=== PATIENT | male | born 1955 | race Two or more races ===

== ENCOUNTER 2019-04-07 12:55 | Inpatient (IN) | payer MEDICAID ==
[~2019-04-07] VITALS: Ht 167.6 cm; Wt 80.3 kg
[2019-04-07] MEDS ORDERED: IV NS 0.9% 1,000 ML BAG IV ONE (13:00)
--- NOTE | 2019-04-07 13:10 | NUR ---
PT BLOOD DRAWNED AND SENT TO LAB.
[2019-04-07] MEDS ORDERED: ATOR10TA GT (13:11)
[2019-04-07] MEDS ORDERED: DOCU50LI GT (13:11)
[2019-04-07] MEDS ORDERED: NA P133E RC (13:11)
[2019-04-07] MEDS ORDERED: HYDR-4384 GT (13:11)
[2019-04-07] MEDS ORDERED: ZOLP5TAB2 GT (13:11)
[2019-04-07] MEDS ORDERED: FAMO20TA80 GT (13:11)
[2019-04-07] MEDS ORDERED: LEVE100S GT (13:11)
[2019-04-07] MEDS ORDERED: MAGN400O6 GT (13:11)
[2019-04-07] MEDS ORDERED: NUTR250L50 GT (13:11)
[2019-04-07] MEDS ORDERED: BISA10SU11 RC (13:11)
[2019-04-07] MEDS ORDERED: MULT-24 GT (13:11)
[2019-04-07] MEDS ORDERED: CLON1TAB GT (13:11)
[2019-04-07] MEDS ORDERED: LACT10SO GT (13:11)
[2019-04-07] MEDS ORDERED: GABA-532 GT (13:11)
[2019-04-07] MEDS ORDERED: ACET-868 GT (13:11)
[2019-04-07] MEDS ORDERED: CHOL100044 GT (13:11)
[2019-04-07 13:13] LABS: BASOPHILS # (AUTO) 0.1 /CMM (0.0-0.2); BASOPHILS % (AUTO) 0.7 % (0.0-2.0); EOSINOPHILS % (AUTO) 3.5 % (0.0-6.0); HEMATOCRIT 45 % (39-51); HEMOGLOBIN 15.5 g/dL (13.5-17.5); LYMPHOCYTES # (AUTO) 1.9 /CMM (0.8-4.8); LYMPHOCYTES % (AUTO) 19.4 % (20.0-44.0); MEAN CORPUSCULAR HGB CONC 35 g/dl (31.0-36.0); MEAN CORPUSCULAR VOLUME 95 fL (80-96); MONOCYTES # (AUTO) 0.6 /CMM (0.1-1.30); NEUTROPHILS # (AUTO) 6.9 /CMM (1.8-8.9); NEUTROPHILS % (AUTO) 70.4 % (43.0-81.0); PLATELET COUNT (AUTO) 259 /CMM (150-450); RED BLOOD CELL COUNT(AUTO) 4.71 MIL/uL (4.5-6.0); WHITE BLOOD COUNT (AUTO) 9.7 K/uL (4.3-11.0)
--- NOTE | 2019-04-07 13:20 | NUR ---
pt rec'd to er via ems from [facility] pt witness seizure iv rt wrist 20g labs drawns sent to labAWAITING EVALUATION BY ER PROVIDER.
[2019-04-07 13:21] LABS: CALCIUM, SERUM 9.4 mg/dL (8.5-10.1); CREATININE 0.8 mg/dL (0.6-1.3)
[2019-04-07 13:27] LABS: BILIRUBIN,DIRECT 0.2 mg/dL (0.0-0.2); BILIRUBIN,TOTAL 0.3 mg/dL (0.2-1.0); TOTAL PROTEIN, SERUM 8.4 g/dL (6.4-8.2)
--- NOTE | 2019-04-07 15:07 | NUR ---
[facility] TRIP #[id number] ETA [id number]
--- NOTE | 2019-04-07 15:16 | NUR ---
[facility] CANCELLED DUE TO PT ADMISSION
[2019-04-07] MEDS: LEVETIRACETAM (500MG) 1,000 MG in IV NS 0.9% 100 ML IV SCH (15:18)
--- NOTE | 2019-04-07 15:19 | NUR ---
CALLED [facility], GABBY FULLER
--- NOTE | 2019-04-07 15:19 | NUR ---
keppra given per md order vss
--- NOTE | 2019-04-07 15:20 | NUR ---
CALLED NURSING SUP FOR BED
--- NOTE | 2019-04-07 15:34 | NUR ---
119-1 TELE GUILHERME HANCOCK, DX SEIZURE, JONNY
--- NOTE | 2019-04-07 15:50 | NUR ---
JONNY PAGED FOR ADMISSION
[2019-04-07] MEDS ORDERED: MAGNESIUM HYDROXIDE 30 ML UDC PO PRN (16:30)
[2019-04-07] MEDS ORDERED: Z GUARD REMEDY 2 OZ OINT TP PRN (16:30)
[2019-04-07] MEDS ORDERED: ONDANSETRON HCL/PF 4 MG/2 ML VIAL IVP PRN (16:30)
[2019-04-07] MEDS ORDERED: MAG HYDROX/AL HYDROX/SIMETH 30 ML UDC PO PRN (16:30)
[2019-04-07] MEDS ORDERED: ACETAMINOPHEN 325 MG TABLET PO PRN (16:30)
[2019-04-07] MEDS ORDERED: HYDROCODONE/APAP 5/325MG 1 EACH TABLET PO PRN (16:30)
[2019-04-07] MEDS ORDERED: ZOLPIDEM TARTRATE 5 MG TABLET PO PRN (16:30)
--- NOTE | 2019-04-07 16:47 | NUR ---
REPORT CALLED TO THE FLOOR GUILHERME HANCOCK PT STABLE FOR TRANSFER
[2019-04-07] MEDS: IV NS 0.9% 1,000 ML IV PRN (17:30)
[2019-04-07 18:15] VITALS: BP 142/78
--- NOTE | 2019-04-07 18:17 | NUR ---
TRANSFER RECIEVED REPORT FROM [facility] RN. PT TRANSFERRED FROM EMERGENCY ROOM UNDER DERDERIAN FOR SZ PT WAS TO BE DISCHARGED BUT NUEROLOGIST IN ED RECOMMEDED PT BE ADMITTED FOR TITRATION OF MEDICATIONS. PT DYSPHAGIC WITH G-TUBE AND PIV IN RIGHT WRIST 20 G PLACED BY PARAMEDICS. PT SKIN WNL EXCEPT LEFT ARM PICTURERS TAKEN PT STARTED ON FLUIDS NS AT 70 ML/HR. PLACED ON MONITOR ST AT 105 BED I LOW POSITION ALRMS ON AND CALL BEL NEXT TO PT WILL CONTINUE TO MONITOR
--- NOTE | 2019-04-07 19:40 | NUR ---
PARA OPERATOR OPENING NOTE, RECEIVED PATIENT ON BED, AWAKE/ALERT x1. PATIENT TRANSFERRED FROM EMERGENCY ROOM UNDER DERDERIAN FOR SZ AT 1700. PATENT HAS G-TUBE, IV IN RIGHT WRIST 20 G, NS @75 RUNNING. PATIENT ON MONITOR. BED IN LOW POSITION BED ALARM ON AND CALL BEL NEXT TO PATIENT WILL CONTINUE TO MONITOR
[2019-04-07 20:00] VITALS: BP 126/75
[2019-04-07] MEDS ORDERED: JEVITY 1.2 CAL 1,000 ML BOTTLE GT PRN (22:30)
[2019-04-08] VITALS (7 sets, daily range): BP systolic 109–141; BP diastolic 69–81
[2019-04-08] MEDS: LEVETIRACETAM (500MG) 1,000 MG in IV NS 0.9% 100 ML IV SCH (03:02)
[2019-04-08] MEDS ORDERED: LEVETIRACETAM (500MG) 500 MG/5 ML VIAL IV ONE (03:10)
[2019-04-08] MEDS: IV NS 0.9% 1,000 ML IV PRN ×2 (06:28→20:54)
--- NOTE | 2019-04-08 07:12 | NUR ---
MOLD INSERT CHANGER CLOSING NOTE, PATIENT ON BED, SLEEPING, A/O x1. PATIENT TRANSFERRED FROM EMERGENCY ROOM FOR SZ AT 1700. PATENT HAS G-TUBE JEVITY RUNNING AT 40ML/HR, IV IN RIGHT WRIST 20 G, NS @75 RUNNING. PATIENT ON MONITOR.NO SOB OR ACUTE DISTRESS NOTED AT CLEARING DISTRIBUTION CLERK. BED IN LOW POSITION BED ALARM ON AND CALL BEL NEXT TO PATIENT WILL ENDORSE TO AM SHIFT FOR ETHEL.
--- NOTE | 2019-04-08 07:30 | NUR ---
RN OPENING NOTES PATIENT IS AWAKE AND RESTING IN BED. HE IS AOX1, NONVERBAL, FALL RISK. P[ATIENT IS ON RA, TOLERATING WELL, NO S/SX OF RESP DISTRESS OR SOB. JEVITY IS RUNNING AT 40 ML/HR, NO RESIDUAL AT THIS TIME. HE HAS A 20 G ON RIGHT WRIST RUNNING NS AT 75 ML/HR. FULL CODE. NKA. SAFETY MEASURES HAVE BEEN IMPLEMENTED, CALL LIGHT IS WITHIN REACH, BED IN LOWEST AND LOCKED POSITION, SIDE RAILS UP X2, WILL MONITOR FOR ANY CHANGES.
[2019-04-08 07:42] LABS: ALBUMIN 2.5 g/dL (3.4-5.0); BILIRUBIN,TOTAL 0.5 mg/dL (0.2-1.0); CALCIUM, SERUM 8.4 mg/dL (8.5-10.1); CREATININE 0.7 mg/dL (0.6-1.3); MAGNESIUM 2.1 mg/dL (1.8-2.4); PHOSPHORUS 3.5 mg/dL (2.5-4.9); POTASSIUM 4.8 mmol/L (3.5-5.1); TOTAL PROTEIN, SERUM 7.8 g/dL (6.4-8.2)
[2019-04-08 07:55] LABS: BASOPHILS # (AUTO) 0.1 /CMM (0.0-0.2); BASOPHILS % (AUTO) 0.8 % (0.0-2.0); EOSINOPHILS % (AUTO) 4.4 % (0.0-6.0); HEMATOCRIT 45 % (39-51); HEMOGLOBIN 15.4 g/dL (13.5-17.5); LYMPHOCYTES # (AUTO) 2.4 /CMM (0.8-4.8); LYMPHOCYTES % (AUTO) 22.3 % (20.0-44.0); MEAN CORPUSCULAR HGB CONC 35 g/dl (31.0-36.0); MEAN CORPUSCULAR VOLUME 96 fL (80-96); MONOCYTES # (AUTO) 0.6 /CMM (0.1-1.30); MONOCYTES % (AUTO) 5.4 % (2.0-12.0); NEUTROPHILS # (AUTO) 7.2 /CMM (1.8-8.9); NEUTROPHILS % (AUTO) 67.1 % (43.0-81.0); RED BLOOD CELL COUNT(AUTO) 4.67 MIL/uL (4.5-6.0); WHITE BLOOD COUNT (AUTO) 10.7 K/uL (4.3-11.0)
[2019-04-08 08:43] LABS: PLATELET COUNT (AUTO) 202 /CMM (150-450)
--- NOTE | 2019-04-08 14:18 | NUR ---
DR. ABRAHAM NOTIFIED PATIENT HAD SEIZURE EPISODE FOR 10 SECONDS,BECOME TACHY,OBTAINED ORDERS FOR PRN ATIVAN AND REQUESTED NEURO CONSULT WITH [facility].
--- NOTE | 2019-04-08 14:29 | NUR ---
MESSAGE LEFT TO DR. STOREY FOR CONSULT.
[2019-04-08] MEDS ORDERED: LORAZEPAM INJ 2 MG/ML VIAL IV PRN (14:30)
[2019-04-08] MEDS ORDERED: LACOSAMIDE 50 MG TABLET PO SCH (15:00)
[2019-04-08] MEDS ORDERED: LEVETIRACETAM (500MG) 1,500 MG in IV NS 0.9% 100 ML IV SCH (15:00)
[2019-04-08] MEDS: LACOSAMIDE 50 MG TABLET PO SCH ×2 (15:09→22:08)
[2019-04-08] MEDS ORDERED: NS 0.9% IV SCH (16:00)
[2019-04-08] MEDS ORDERED: D5W IV ONE (16:00)
[2019-04-08] MEDS ORDERED: LEVETIRACETAM IV SCH (16:00)
[2019-04-08] MEDS ORDERED: LEVETIRACETAM IV ONE (16:00)
--- NOTE | 2019-04-08 19:21 | NUR ---
RN CLOSING NOTES PATIENT IS RESTING IN BED COMFORTABLY. HE HAD ONE SEIZURE AT 1400 DURING MY SHIFT. HE IS STABLE NOW, NEEDS HAVE BEEN MET. HE IS ON RA, TOLERATING WELL. JEVITY RUNNING AT 40 ML/HR. SAFETY MEASURES HAVE BEEN IMPLEMENTED, CALL LIGHT IS WITHIN REACH, BED IN LOWEST AND LOCKED POSITION, SIDE RAILS UP X2. PATIENT HAS BEEN ENDORSED TO NIGHTSHIFT RN.
--- NOTE | 2019-04-08 19:30 | NUR ---
CORRECTIONS SERGEANT OPENING NOTE, RECEIVED PATIENT ON BED, AWAKE/ALERT x1. ON ROOM AIR TOLERATING WELL. PATENT HAS G-TUBE JEVITY RUNNING AT 40ML/HR, IV IN RIGHT WRIST 20 G, NS @75 RUNNING. PATIENT ON MONITOR. SAFETY MEASURES HAS BEEN IMPLEMENTED, BED IS LOW/LOCKED, BED ALARM ON AND CALL LIGHT WITHIN REACH. WILL CONTINUE TO MONITOR
[2019-04-09] VITALS: BP 126/74
[2019-04-09] MEDS: JEVITY 1.2 CAL 1,000 ML BOTTLE GT PRN (02:12)
[2019-04-09 04:00] VITALS: BP 102/57
[2019-04-09] MEDS ORDERED: LEVETIRACETAM (500MG) 500 MG/5 ML VIAL IV ONE ×2 (04:11→04:25)
[2019-04-09] MEDS: NS 0.9% IV SCH ×2 (04:29→16:05)
[2019-04-09] MEDS: LEVETIRACETAM IV SCH ×2 (04:29→16:05)
--- NOTE | 2019-04-09 07:10 | NUR ---
MACHINE WORKER CLOSING NOTE, PATIENT IN BED, AWAKE/ALERT x1. ON ROOM AIR TOLERATING WELL. PATENT HAS G-TUBE JEVITY RUNNING AT 40ML/HR, IV IN RIGHT WRIST 20 G, NS @75 RUNNING. PATIENT ON MONITOR. SAFETY MEASURES HAS BEEN IMPLEMENTED, BED IS LOW/LOCKED, BED ALARM ON AND CALL LIGHT WITHIN REACH. WILL ENDORSE TO AM RN FOR ETHEL.
--- NOTE | 2019-04-09 07:10 | NUR ---
INFUSION THERAPY NURSE OPENING NOTE RECEIVED PATIENT ON BED, AWAKE/ALERT x1. ON ROOM AIR TOLERATING WELL. PATENT HAS G-TUBE JEVITY RUNNING AT 40ML/HR, IV IN RIGHT WRIST 20 G, NS @75 RUNNING. PATIENT ON MONITOR SR HR 71. SAFETY MEASURES HAS BEEN IMPLEMENTED, BED IS LOW/LOCKED, BED ALARM ON AND CALL LIGHT WITHIN REACH. WILL CONTINUE TO MONITOR
[2019-04-09 08:00] VITALS: BP 107/68
[2019-04-09] MEDS: LACOSAMIDE 50 MG TABLET PO SCH ×2 (09:51→20:51)
[2019-04-09 12:00] VITALS: BP 125/61
[2019-04-09 16:00] VITALS: BP_SYST 112; BP_DIAS 53; BP_DIAS 63
[2019-04-09] MEDS: IV NS 0.9% 1,000 ML IV PRN (16:06)
--- NOTE | 2019-04-09 18:50 | NUR ---
SLATER APPRENTICE MS PT VOMITED A VERY SMALL AMOUNT AFTER HAVING SOUP DINNER. ASPIRATION PRECAUTION IN PLACE. HOB ELEVATED. WALL SUCTION SET UP. PAGED DR. FULLER AND WAITING FOR HIS CALL. CHARGE NURSE MADE AWARE. PT FAMILY REFUSED TO GIVE HER ZOFRAN.
--- NOTE | 2019-04-09 19:04 | NUR ---
DIRECTOR FINANCIAL SYSTEMS CLOSING NOTES PATIENT IS RESTING IN BED COMFORTABLY. SINUS RHYTHM HR 82. NO RESPIRATORY/CARDIAC DISTRESS OR SOB AT THIS TIME. ON RA, TOLERATING WELL. JEVITY RUNNING AT 40 ML/HR. SAFETY MEASURES HAVE BEEN IMPLEMENTED, CALL LIGHT IS WITHIN REACH, BED IN LOWEST AND LOCKED POSITION, SIDE RAILS UP X2. WILL ENDORSE TO THE COOLING TOWER TECHNICIAN NURSE FOR ETHEL.
--- NOTE | 2019-04-09 19:30 | NUR ---
BIOMETRICS ANALYST OPENING NOTE, RECEIVED PATIENT ON BED, AWAKE/ALERT x1. ON ROOM AIR TOLERATING WELL. PATENT HAS G-TUBE JEVITY RUNNING AT 40ML/HR, IV IN RIGHT WRIST 20 G, NS @75 RUNNING. PATIENT ON MONITOR. SAFETY MEASURES HAS BEEN IMPLEMENTED, BED IS LOW/LOCKED, BED ALARM ON AND CALL LIGHT WITHIN REACH. WILL CONTINUE TO MONITOR
[2019-04-09 20:00] VITALS: BP 132/70
[2019-04-10] VITALS (8 sets, daily range): BP systolic 113–139; BP diastolic 73–97
[2019-04-10] MEDS ORDERED: LEVETIRACETAM (500MG) 500 MG/5 ML VIAL IV ONE ×2 (03:54→04:39)
[2019-04-10] MEDS: LEVETIRACETAM IV SCH ×2 (04:08→15:30)
[2019-04-10] MEDS: NS 0.9% IV SCH ×2 (04:08→15:30)
--- NOTE | 2019-04-10 07:20 | NUR ---
RUBBER BOOTS AND SHOES REPAIRER CLOSING NOTES PATIENT IS RESTING IN BED COMFORTABLY. SINUS RHYTHM HR IN 80s. NO RESPIRATORY/CARDIAC DISTRESS OR SOB AT THIS TIME. ON RA, TOLERATING WELL. JEVITY RUNNING AT 40 ML/HR. SAFETY MEASURES HAVE BEEN IMPLEMENTED, CALL LIGHT IS WITHIN REACH, BED IN LOWEST AND LOCKED POSITION, SIDE RAILS UP X2. WILL ENDORSE TO THE ASSISTANT ATTORNEY GENERAL NURSE FOR ETHEL.
--- NOTE | 2019-04-10 07:25 | NUR ---
TELE/RN OPENING NOTES RECEIVED PATIENT ON BED AWAKE, ALERT AND ORIENTED x1. NO PAIN OR ACUTE DISTRESS AT THIS TIME. RESPIRATION EVEN AND UNLABORED. SKIN IS DRY WARM TO TOUCH. PATIENT ON ROOM AIR TOLERATING WELL. CONBTINUES ON TELE MONITORING WITH HR AROUND 80'S. NOTED WITH GTF OF JEVITY RUNNING AT 40ML/HR. TOLERATING WELL. NO RESIDUALS NOTED. HOB ELEVATED AT ALL TIMES. NOTED WITH IV ACCESS ON RIGHT WRIST #20G WITH NS @75 RUNNING. INTACT AND PATENT. FLUSHING WELL. ALL NEEDS ANTICIPATED. KEPT CLEAN AND DRY. CALL LIGHT WITHIN REACHED. SAFETY MAINTAINED. BED LOCKED AND IN LOWEST POSITION. WILL CONTINUE TO MONITOR CLOSELY.
[2019-04-10] MEDS: IV NS 0.9% 1,000 ML IV PRN (07:47)
[2019-04-10] MEDS: JEVITY 1.2 CAL 1,000 ML BOTTLE GT PRN (07:47)
[2019-04-10] MEDS: LACOSAMIDE 50 MG TABLET PO SCH ×2 (08:20→20:17)
--- NOTE | 2019-04-10 18:39 | NUR ---
TELE/RN CLOSING NOTES PATIENT CONTINUES TO REMAIN IN STABLE CONDITION THROUGHOUT THE SHIFT. PROVIDED SAFETY AND COMFORT. TELE MONITORING WITH HR AROUND 75'S. CONTINUES WITH GTF OF JEVITY RUNNING AT 40ML/HR. TOLERATING WELL. NO RESIDUALS NOTED. HOB ELEVATED AT ALL TIMES. NOTED WITH IV ACCESS ON RIGHT WRIST #20G WITH NS @75 RUNNING. INTACT AND PATENT. FLUSHING WELL. ALL NEEDS ANTICIPATED. KEPT CLEAN AND DRY. CALL LIGHT WITHIN REACHED. SAFETY MAINTAINED. BED LOCKED AND IN LOWEST POSITION. WILL CONTINUE TO MONITOR CLOSELY. ENDORSED TO PM NURSE FOR ETHEL.
[2019-04-11] VITALS: BP 113/80
[2019-04-11] MEDS: IV NS 0.9% 1,000 ML IV PRN (01:19)
[2019-04-11 04:00] VITALS: BP 130/77
[2019-04-11] MEDS: NS 0.9% IV SCH (05:02)
[2019-04-11] MEDS: LEVETIRACETAM IV SCH (05:02)
--- NOTE | 2019-04-11 07:23 | NUR ---
RN NOTE PATIENT RESTED WELL AT NIGHT, SEIZURE PRECAUTIONS TAKEN, NO SEIZURE ACTIVITY NOTED, NO RESPIRATORY DISTRESS NOTED, ONGOING TUBE FEEDING TOLERATES WELL, ONGOING IV FLUIDS, TOLERATES WELL, WILL ENDORSE TO AM SHIFT TO CONTINUE CARE
--- NOTE | 2019-04-11 07:30 | NUR ---
RN OTES RECEIVED PATIENT IN BED, A/A/0X1,NON VERBAL. NOT ON ANY FORM OF DISTRESS. ON ROOM AIR, BREATHING UNLABORED, NO INDICATION OF PAIN NOTED AT THIS TIME. SINUS RHYTHM ON THE MONITOR WITH HR ON 70'S. WITH GTF OF JEVITY INFUSING AT 40CC/HR, GT PLACEMENT VERIFIED BY AUSCULTATING AND ASPIRATING GASTRIC RESIDUAL, NO RESIDUAL NOTED AT THIS TIME. HOB KEPT ELEVATED. SAFETY MEASURES OBSERVED AND MAINTAINED. CALL LIGHT PLACED WITHIN REACH. WILL CONTINUE TO MONITOR PATIENT AND ANTICIPATE NEEDS
[2019-04-11 08:00] VITALS: BP 128/68
[2019-04-11] MEDS: LACOSAMIDE 50 MG TABLET PO SCH (09:28)
--- NOTE | 2019-04-11 14:10 | NUR ---
RN NOTES PATIENT DISCHARGE. ALL MEDICATION AND DISCHARGE INSTRUCTION GIVEN TO [facility] [place] DURING REPORT. PER THE LATER PATIENT HAS BEEN VACCINATED. NO BELONGINGS WERE RECORDED UPON ADMISSION. SKIN IS NOTED INTACT UPON CHECKING DURING CLEANING. ID BAND AND IV ACCESS SITE REMOVED. PATIENT WHEELED OUT OF THE UNIT ACCOMPANIED BY 2 EMT
== END 2019-04-11 14:10 | DRG 53 ==
LOC: ER 13:01 → TELE1 16:49 → MEDSG1 04-11 08:37
PROVIDERS: ADMIT Internal Medicine; ATTEND Nurse Practitioner Acute Care
DX: G40.909 Epilepsy, unspecified, not intractable, without status epilepticus (principal); G62.9 Polyneuropathy, unspecified; Z93.1 Gastrostomy status; M06.9 Rheumatoid arthritis, unspecified; R13.10 Dysphagia, unspecified; F79 Unspecified intellectual disabilities; E66.9 Obesity, unspecified; Z68.29 Body mass index [BMI] 29.0-29.9, adult
CPT/HCPCS: 36415; 70450-TC; 71045-TC; 80048-TC; 80053-TC; 80061-TC; 80076-TC; 82962-TC; 83735-TC; 84100-TC; 84484-TC; 85025-TC; 85730-TC; 87081-TC; G0378; J1953; J7030; J7050; J7060

== ENCOUNTER 2019-06-03 14:05 | Inpatient (IN) | payer MEDICAID ==
[~2019-06-03] VITALS: Ht 167.6 cm; Wt 76.7 kg
[~2019-06-03 14:05] MED LIST: ACET-868 GT; ATOR10TA PO; BISA10SU11 RC; CHOL100044 PO; CLON1TAB GT; DOCU50LI PO; FAMO20TA80 PO; GABA-532 PO; HYDR-4384 GT; LACT10SO GT; LEVE100S PO; MAGN400O6 GT; MULT-24 PO; NA P133E RC; NUTR250L50 GT; ZOLP5TAB2 GT
--- NOTE | 2019-06-03 14:10 | NUR ---
CHEY FROM [facility], FOUND MORE ALTERED, NON VERBAL 1 HOUR AGO. LAST KNOWN WELL 10 PM LAST NIGHT. BG 143 QUALITY PROCESS ENGINEER. PATIENT NON-VERBAL, OPENS EYES, CHANGED INTO GOWN, ATTACHED TO THE FLAP PRESSER. NO DISTRESS NOTED.
[2019-06-03] MEDS ORDERED: ONDANSETRON HCL/PF 4 MG/2 ML VIAL IVP ONE (14:30)
[2019-06-03] MEDS ORDERED: ONDANSETRON HCL/PF 4 MG/2 ML VIAL ONE (14:34)
[2019-06-03] MEDS ORDERED: LORA2VIA11 IM (14:34)
[2019-06-03] MEDS ORDERED: LACO100T2 PO (14:34)
[2019-06-03 14:37] LABS: BASOPHILS # (AUTO) 0.1 /CMM (0.0-0.2); BASOPHILS % (AUTO) 0.7 % (0.0-2.0); EOSINOPHILS % (AUTO) 3.6 % (0.0-6.0); HEMATOCRIT 45 % (39-51); HEMOGLOBIN 15.2 g/dL (13.5-17.5); LYMPHOCYTES # (AUTO) 2.2 /CMM (0.8-4.8); LYMPHOCYTES % (AUTO) 31.1 % (20.0-44.0); MEAN CORPUSCULAR HGB CONC 34 g/dl (31.0-36.0); MEAN CORPUSCULAR VOLUME 95 fL (80-96); MONOCYTES # (AUTO) 0.7 /CMM (0.1-1.30); MONOCYTES % (AUTO) 9.4 % (2.0-12.0); NEUTROPHILS # (AUTO) 3.9 /CMM (1.8-8.9); NEUTROPHILS % (AUTO) 55.2 % (43.0-81.0); PLATELET COUNT (AUTO) 186 /CMM (150-450); RED BLOOD CELL COUNT(AUTO) 4.69 MIL/uL (4.5-6.0); WHITE BLOOD COUNT (AUTO) 7.1 K/uL (4.3-11.0)
--- NOTE | 2019-06-03 14:56 | NUR ---
PLEASE NOTIFY RUI HANCOCK AT FACILITY, FOR UPDATES
[2019-06-03 15:00] LABS: ALANINE AMINOTRANSFERASE 22 U/L (12-78); ALBUMIN 3.4 g/dL (3.4-5.0); ALKALINE PHOSPHATASE 137 U/L (46-116); ASPARTATE AMINOTRANSFERASE 24 U/L (15-37); BILIRUBIN,DIRECT 0.1 mg/dL (0.0-0.2); BILIRUBIN,TOTAL 0.3 mg/dL (0.2-1.0); CALCIUM, SERUM 9.1 mg/dL (8.5-10.1); CARBON DIOXIDE 27 mmol/L (21-32); CHLORIDE 103 mmol/L (98-107); CREATININE 1.1 mg/dL (0.6-1.3); GLUCOSE 140 mg/dL (74-106); POTASSIUM 3.5 mmol/L (3.5-5.1); SODIUM SERUM 138 mmol/L (136-145); TOTAL PROTEIN, SERUM 8.7 g/dL (6.4-8.2); UREA NITROGEN, BLOOD 12 mg/dL (7-18)
[2019-06-03 15:01] LABS: THYROID STIMULATING HORMONE 1.711 uIU/mL (0.358-3.74)
[2019-06-03 15:13] LABS: BILIRUBIN,URINE SMALL (NEGATIVE); BLOOD, URINE Negative Ery/uL (NEGATIVE); COLOR,URINE Yellow (YELLOW); KETONES,URINE Negative (NEGATIVE); LEUKOCYTE ESTERASE ,URINE Trace (NEGATIVE); NITRITE, URINE Positive (NEGATIVE); PH,URINE 5.5 (5.0-8.0); PROTEIN,URINE Trace mg/dl (NEGATIVE); UGLUCOSE Negative (NEGATIVE); UROBILINOGEN,URINE 0.2 EU/dL (0.2)
[2019-06-03 15:15] LABS: APPEARANCE,URINE SLIGHTLY CLOUDY (CLEAR); RBC,URINE 0-2 /HPF (0-2)
[2019-06-03 15:16] LABS: BACTERIA,URINE Moderate /HPF (None Seen); SQUAMOUS EPITHELIAL CELL,UR Moderate /HPF (None Seen)
[2019-06-03] MEDS ORDERED: CEFTRIAXONE 1GM BAG (ER ONLY) 50 ML IV ONE ×2 (15:30→15:37)
[2019-06-03] MEDS ORDERED: IV NS 0.9% 1,000 ML BAG IV ONE ×2 (15:30→17:30)
--- NOTE | 2019-06-03 16:30 | NUR ---
CALLED [facility], DR GRANDE PAGED
--- NOTE | 2019-06-03 16:41 | NUR ---
CALLED [facility]
--- NOTE | 2019-06-03 17:13 | NUR ---
308-2 [facility]
--- NOTE | 2019-06-03 17:37 | NUR ---
REPORT GIVEN TO XANDER HANCOCK FOR ETHEL.
--- NOTE | 2019-06-03 18:04 | NUR ---
PATIENT TRANSFERRED TO ROOM 308-2. PATIENT IN STABLE CONDITION. NO DISTRESS NOTED.
[2019-06-03 18:30] VITALS: BP 136/81
--- NOTE | 2019-06-03 18:39 | NUR ---
MS RN NOTES RECEIVED PT FROM ER DEPT. PT A/O X1, NON VERBAL, OPENS EYES, STARES AND TRACKS MOVEMENT OF STAFF. VITALS TAKEN; BP 136/81, HR 86, RR19, T 98.8, RA 93%. PT NOT IN ANY RESPIRATORY DISTRESS, PT NOT EXHIBITING PAIN OR DISCOMFORT. PT WEARING SHIRT AND PANTS WITH DIAPER. WHITE WATCH WITH PT'S LABEL AT BEDSIDE. PIV TO LEFT WRIST G18 SL, FLUSHED WITH NS, INTACT AND OPERATIONAL. WILL ENDORSE TO INCOMING NIGHT NURSE FOR ADMISSION PROCESS. PT KEPT COMFORTABLE IN BED. BED IN LOWEST, LOCKED POSITION, WITH SR X3. CALL LIGHT KEPT WITHIN REACH. WILL ENDORSE TO ASPHALT WORKER NURSE FOR ETHEL.
[2019-06-03] MEDS ORDERED: ACETAMINOPHEN 325 MG TABLET PO PRN (19:30)
[2019-06-03] MEDS ORDERED: LORAZEPAM INJ 2 MG/ML VIAL IM PRN (19:30)
[2019-06-03] MEDS ORDERED: Z GUARD REMEDY 2 OZ OINT TP PRN (19:30)
[2019-06-03] MEDS ORDERED: MAG HYDROX/AL HYDROX/SIMETH 30 ML UDC PO PRN (19:30)
[2019-06-03] MEDS ORDERED: ONDANSETRON HCL/PF 4 MG/2 ML VIAL IVP PRN (19:30)
[2019-06-03] MEDS ORDERED: MAGNESIUM HYDROXIDE 30 ML UDC PO PRN (19:30)
[2019-06-03] MEDS ORDERED: HYDROCODONE/APAP 5/325MG 1 EACH TABLET PO PRN (19:30)
--- NOTE | 2019-06-03 19:30 | NUR ---
MS RN OPENING NOTE RECEIVED PATIENT IN BED. A/O X1, NON VERBAL, EYES ARE OPEN, STARES AND TRACKS MOVEMENT OF STAFF. TOLERATING ROOM AIR. RESPIRATIONS ARE EVEN AND UNLABORED. NO S/S SOB NOTED. NO APPARENT DISTRESS AT THIS TIME. PT IS GRUNTING/ COUGHING WITH NO PRODUCTIVE SPUTUM. PT NOT EXHIBITING PAIN OR DISCOMFORT. IV ACCESS IN LEFT WRIST #18 PATENT AND SALINE LOCKED. COMPLETED A COMPLETE INITIAL PHYSICAL ASSESSMENT ON PATIENT, CHANGED ID BAND, CONDUCTED SKIN ASSESSMENT, PHOTOS TAKEN AND PLACED IN CHART, CHANGED PATIENT INTO GOWN AT THIS TIME. BED IS LOW AND LOCKED, HOB ELEVATED 45 DEGREES, SIDE RAILS UP X2. CALL LIGHT WITHIN REACH. WILL CONTINUE TO MONITOR.
[2019-06-03 20:00] VITALS: BP 141/98
--- NOTE | 2019-06-03 20:15 | NUR ---
MS RN NOTE APPLIED SEIZURE PRECAUTIONS AT THIS TIME. SIDE RAILS UP X3.WILL CONTINUE TO MONITOR
[2019-06-03] MEDS: LACOSAMIDE 50 MG TABLET PO SCH (21:00)
[2019-06-03] MEDS ORDERED: LEVETIRACETAM SOL (5 ML) 100 MG/ML UDC PO SCH (21:00)
--- NOTE | 2019-06-03 21:00 | NUR ---
MS RN NOTE COMPLETED A NURSING SWALLOW EVAL. NOTIFIED MD THAT PATIENT IS NONVERBAL, GARGLING WORDS, NOT FOLLOWING COMMANDS, TRACKING WITH EYES. PATIENT IS ON KEPPRA 1500MG PO, SUGGESTED TO CHANGE TO IV. MD ORDERED KEPPRA 1500MG IN 100ML NS BAG. ORDER NOTED AND CARRIED OUT.
--- NOTE | 2019-06-03 21:58 | NUR ---
MS RN NOTE FAX ORDER FOR KEPPRA 1500MG TO NURSING [facility] D/T NO STOCK IN [place] CELL. CALLED NURSING SUP ONCE FAXED. NOTIFIED THAT SHE WILL BRING THE KEPPRA.
[2019-06-03] MEDS: ATORVASTATIN 10 MG TABLET PO SCH (22:00)
[2019-06-03] MEDS ORDERED: ZOLPIDEM TARTRATE 5 MG TABLET PO PRN (22:00)
[2019-06-03] MEDS: IV D5/0.45 NACL 1,000 ML IV PRN (22:04)
--- NOTE | 2019-06-03 22:05 | NUR ---
MS RN NOTE DID NOT ADMINISTER VAMPAT 50MG PO, AND I DID NOT ADMINISTER LIPITOR 10MG PO D/T PATIENT IS NPO STATUS.
[2019-06-03] MEDS ORDERED: LEVETIRACETAM (500MG) 500 MG/5 ML VIAL IV ONE ×2 (22:11→22:14)
--- NOTE | 2019-06-03 22:20 | NUR ---
MS RN NOTE RECEIVED KEPPRA FROM NURSING SUP. WILL ADMINISTER NOW.
[2019-06-03] MEDS: LEVETIRACETAM (500MG) 1,500 MG in IV NS 0.9% 100 ML IV SCH (22:27)
--- NOTE | 2019-06-04 00:40 | NUR ---
MS RN NOTE SUGGESTED TO MD FOR A SWALLOW EVAL FROM SPEECH THERAPY D/T NONVERBAL, NOT FOLLOWING COMMANDS, DX AMS, A/O X1. MD TELEPHONE ORDERED SWALLOW EVAL FOR TOMORROW, READ BACK, NOTED, CARRIED OUT.
[2019-06-04 06:17] LABS: BASOPHILS % (AUTO) 0.7 % (0.0-2.0); EOSINOPHILS % (AUTO) 6.2 % (0.0-6.0); HEMATOCRIT 39 % (39-51); HEMOGLOBIN 13.3 g/dL (13.5-17.5); LYMPHOCYTES # (AUTO) 1.5 /CMM (0.8-4.8); LYMPHOCYTES % (AUTO) 30.1 % (20.0-44.0); MEAN CORPUSCULAR HGB CONC 34 g/dl (31.0-36.0); MEAN CORPUSCULAR VOLUME 95 fL (80-96); MONOCYTES # (AUTO) 0.4 /CMM (0.1-1.30); MONOCYTES % (AUTO) 8.5 % (2.0-12.0); NEUTROPHILS # (AUTO) 2.8 /CMM (1.8-8.9); NEUTROPHILS % (AUTO) 54.5 % (43.0-81.0); PLATELET COUNT (AUTO) 135 /CMM (150-450); RED BLOOD CELL COUNT(AUTO) 4.17 MIL/uL (4.5-6.0); WHITE BLOOD COUNT (AUTO) 5.1 K/uL (4.3-11.0)
[2019-06-04 06:44] LABS: CALCIUM, SERUM 8.2 mg/dL (8.5-10.1); CREATININE 0.8 mg/dL (0.6-1.3); MAGNESIUM 1.9 mg/dL (1.8-2.4); PHOSPHORUS 3.1 mg/dL (2.5-4.9); POTASSIUM 3.3 mmol/L (3.5-5.1)
[2019-06-04 06:47] LABS: THYROID STIMULATING HORMONE 1.667 uIU/mL (0.358-3.74)
--- NOTE | 2019-06-04 07:04 | NUR ---
MS RN CLOSING NOTE PATIENT IN BED. A/O X1, NON VERBAL, EYES ARE OPEN, STARES AND TRACKS MOVEMENT OF STAFF. REMAINS TOLERATING ROOM AIR. RESPIRATIONS REMAIN EVEN AND UNLABORED. NO SOB NOTED. NO DISTRESS NOTED . PATIENT DID NOT EXHIBIT PAIN OR DISCOMFORT. IV ACCESS REMAINS IN LEFT WRIST #18 PATENT AND RUNNING D5 1/2NS@75ML/HR. BED REMAINS LOW AND LOCKED, HOB ELEVATED 45 DEGREES, SIDE RAILS UP X2. CALL LIGHT WITHIN REACH. WILL ENDORSE TO NEXT SHIFT FOR ETHEL.
--- NOTE | 2019-06-04 07:30 | NUR ---
MS/RN NOTE THE PATIENT IS RECEIVED IN BED SLEEPING. RESPONSIVE TO TACTILE STIMULI BUT MUMBLING BUT NOT OPENING EYES. NO MANIFESTATION OF DISTRESS NOTED. NO APPARENT RESIDUAL WEAKNESS NOTED. THE PATIENT IS NPO. LEFT WRIST G 18 PATENT AND D1/2 NS INFUSING AT 75ML/HR AND NO S/S INFILTRATION NOTED. BED LOW AND LOCKED. SIDE RAILS UP X3 AND PADDED. WILL CONTINUE TO MONITOR.
[2019-06-04 08:00] VITALS: BP 116/78
[2019-06-04] MEDS: LACOSAMIDE 50 MG TABLET PO SCH ×2 (09:00→21:00)
[2019-06-04] MEDS: DOCUSATE SODIUM LIQ 100 MG/10 ML UDC PO SCH (09:00)
[2019-06-04] MEDS: CHOLECALCIFEROL 1,000 UNIT TABLET (VIT D3) PO SCH (09:00)
[2019-06-04] MEDS: GABAPENTIN 100 MG CAPSULE PO SCH ×3 (09:00→16:10)
[2019-06-04] MEDS: MULTIVITAMINS,THERAGRAN 1 UDTAB TABLET PO SCH (09:00)
[2019-06-04] MEDS: FAMOTIDINE (20 MG) 20 MG TABLET PO SCH (09:00)
--- NOTE | 2019-06-04 10:00 | NUR ---
MS/RN NOTE THE PATIENT IS AWAKE. RESPONSE TO VERBAL STIMULI BY FOLLOWING WITH HIS EYES TOWARD THE VOICE. NO RESIDUAL WEAKNESS OR ANY OTHER SIGNS OF STROKE NOTED. PATIENT IS SEEN BY DR GRANDE AND IS AWARE OF PATIENT CONDITION. WILL CONTINUE TO MONITOR.
[2019-06-04] MEDS: LEVETIRACETAM (500MG) 1,500 MG in IV NS 0.9% 100 ML IV SCH ×2 (10:20→20:19)
[2019-06-04] MEDS: ENOXAPARIN SODIUM 40 MG/0.4 ML DISP.SYRIN SQ SCH (10:21)
[2019-06-04] MEDS: POTASSIUM CL. PREMIX PERIPHER. 50 ML IV SCH ×2 (11:40→13:10)
[2019-06-04 16:00] VITALS: BP 147/85
--- NOTE | 2019-06-04 16:21 | NUR ---
MS/RN NOTE PER DR GRANDE HE ALREADY CALLED FOR NEURO CONSULT. STILL WAITING.
[2019-06-04] MEDS: IV D5/0.45 NACL 1,000 ML IV PRN (17:44)
--- NOTE | 2019-06-04 18:12 | NUR ---
MS/RN NOTE THE PATIENT IS IN BED AND AWAKE. RESPONSIVE TO VERBAL STIMULI BY FOLLOWING THE HIS EYES OR TRYING TO REACH TOWARD THE SPEAKER WITH HIS HANDS. PATIENT MUMBLES SOUNDS. NO APPARENT DEFICIENCIES NOTED. PATIENT REMAINS NPO. LEFT WRIST G 18 PATENT AND D51/2NS INFUSING AT 75ML/HR AND NO S/S INFILTRATION NOTED. TURNED AND POSITIONING DONE. BED LOW AND LOCKED. SIDE RAILS UP X3 AND PADDED. CALL LIGHT WITHIN REACH. WILL WAITING FOR NEURO CONSULT. DR GRANDE IS AWARE THAT NEURO CONSULT HAS NOT BEEN DONE YET, PER DR GRANDE HE ALREADY INFORMED AND NO NEED FOR A NURSE TO MAKE A CALL TO NEURO MD. WILL ENDORSE TO JUICE BAR TEAM MEMBER.
[2019-06-04] MEDS: CEFTRIAXONE 1 G in IV D5W 50 ML IV SCH (19:01)
--- NOTE | 2019-06-04 19:30 | NUR ---
MS RN OPENING NOTE RECEIVED PATIENT IN BED. A/O X1, NON VERBAL, EYES ARE OPEN, STARES AND TRACKS MOVEMENT OF STAFF. TOLERATING ROOM AIR. RESPIRATIONS ARE EVEN AND UNLABORED. NO S/S SOB NOTED. NO APPARENT DISTRESS AT THIS TIME. PT IS GRUNTING/ COUGHING WITH NO PRODUCTIVE SPUTUM. PT NOT EXHIBITING PAIN OR DISCOMFORT. IV ACCESS IN LEFT WRIST #18 PATENT AND RUNNING D5 1/2NS @75ML/HR.BED IS LOW AND LOCKED, HOB ELEVATED ~65 DEGREES, SIDE RAILS UP X3, SEIZURE PRECAUTIONS. CALL LIGHT WITHIN REACH. WILL CONTINUE TO MONITOR.
[2019-06-04 20:00] VITALS: BP 140/80
[2019-06-04 20:10] VITALS: BP 140/80
--- NOTE | 2019-06-04 20:50 | NUR ---
MS RN NOTE NOTIFIED MD THAT PT FAILED SWALLOW EVAL TODAY, HAS 2 PO MEDICATIONS SCHEDULED FOR 2100, LIPITOR 10MG, AND LACOSAMIDE 50MG. ASKED TO CHANGE PO MEDS. MD WAS NOT ABLE TO CHANGE PO MED ORDER. WILL NOT ADMINISTER PO MED D/T NPO STATUS.
[2019-06-04] MEDS: ATORVASTATIN 10 MG TABLET PO SCH (21:01)
[2019-06-05 06:25] LABS: CALCIUM, SERUM 8.5 mg/dL (8.5-10.1); CREATININE 0.9 mg/dL (0.6-1.3); POTASSIUM 3.1 mmol/L (3.5-5.1)
--- NOTE | 2019-06-05 07:01 | NUR ---
MS RN CLOSING NOTE PATIENT IN BED. A/O X1, NON VERBAL, EYES ARE OPEN, STARES AND TRACKS MOVEMENT OF STAFF. REMAINS TOLERATING ROOM AIR. RESPIRATIONS REMAIN EVEN AND UNLABORED. NO SOB NOTED. NO DISTRESS NOTED . PATIENT DID NOT EXHIBIT PAIN OR DISCOMFORT. IV ACCESS REMAINS IN LEFT WRIST #18 PATENT AND RUNNING D5 1/2NS@75ML/HR. BED REMAINS LOW AND LOCKED, HOB ELEVATED 60 DEGREES, SIDE RAILS UP X3, SEIZURE PRECAUTIONS. CALL LIGHT WITHIN REACH. WILL ENDORSE TO NEXT SHIFT FOR ETHEL.
[2019-06-05 08:00] VITALS: BP 144/87
--- NOTE | 2019-06-05 08:15 | NUR ---
MS/RN S/B Ziggy Rojas DRAFTER APPRENTICE Seen by DRAFTER APPRENTICE - await neuro and speech evaluations.
[2019-06-05] MEDS: MULTIVITAMINS,THERAGRAN 1 UDTAB TABLET PO SCH (08:18)
[2019-06-05] MEDS: GABAPENTIN 100 MG CAPSULE PO SCH ×3 (08:18→16:25)
[2019-06-05] MEDS: FAMOTIDINE (20 MG) 20 MG TABLET PO SCH (08:18)
[2019-06-05] MEDS: DOCUSATE SODIUM LIQ 100 MG/10 ML UDC PO SCH (08:18)
[2019-06-05] MEDS: LACOSAMIDE 50 MG TABLET PO SCH (08:19)
[2019-06-05] MEDS: CHOLECALCIFEROL 1,000 UNIT TABLET (VIT D3) PO SCH (08:19)
[2019-06-05] MEDS: ENOXAPARIN SODIUM 40 MG/0.4 ML DISP.SYRIN SQ SCH (08:25)
[2019-06-05] MEDS ORDERED: POTASSIUM CHLORIDE 20 MEQ TAB.PRT.SR PO ONE (08:30)
--- NOTE | 2019-06-05 09:35 | NUR ---
MS/RN S/B Speech therapy Patient failed bedside swallow evaluation, recommendation of reinsertion of GT. Will notify MD.
[2019-06-05] MEDS: LEVETIRACETAM (500MG) 1,500 MG in IV NS 0.9% 100 ML IV SCH ×2 (10:11→21:24)
[2019-06-05] MEDS: IV D5/0.45 NACL 1,000 ML IV PRN (10:12)
--- NOTE | 2019-06-05 11:40 | NUR ---
MS/RN Orders Awaiting GI evaluation due to failed swallow eval.
--- NOTE | 2019-06-05 16:00 | NUR ---
MS/RN S/B Neuro Seen by neuro - all anti seizure medications changed to IVPB due to patient failing swallow evaluation.
[2019-06-05 16:01] VITALS: BP 137/70
[2019-06-05] MEDS: PANTOPRAZOLE 40 MG VIAL IV SCH (18:06)
--- NOTE | 2019-06-05 18:07 | NUR ---
MS/RN S/B GI Seen by GI - patient to be consented and scheduled for EGD with PEG placement tomorrow. Consent obtained from brother Alden.
--- NOTE | 2019-06-05 19:05 | NUR ---
MS RN OPENING NOTES Received patient, A/O x 1, nonverbal, asleep on bed, easily awaken. On RA, no SOB/respiratory distress noted at this time. On NPO, pending swallow eval, on aspiration precautions. On seizure precautions, siderails padded. On s/sx of discomfort noted at this time. With patent peripheral IV line L wrist G#18 with D5 1/2 NS infusing well @ 75ml/hr as ordered. Kept on bed clean, dry and comfortable. Call light within easy reach, on fall precautions. Will continue to monitor accordingly.
[2019-06-05] MEDS ORDERED: LORAZEPAM INJ 2 MG/ML VIAL IVP PRN (19:30)
[2019-06-05] MEDS: CEFTRIAXONE 1 G in IV D5W 50 ML IV SCH (19:38)
[2019-06-05 20:00] VITALS: BP 130/96
[2019-06-05 20:01] VITALS: BP 130/96
[2019-06-05] MEDS ORDERED: LEVETIRACETAM (250 MG) 250 MG TABLET PO SCH (21:00)
[2019-06-05] MEDS ORDERED: LACOSAMIDE 50 MG TABLET PO SCH (21:00)
[2019-06-05] MEDS: ATORVASTATIN 10 MG TABLET PO SCH (22:00)
[2019-06-06] MEDS: IV D5/0.45 NACL 1,000 ML IV PRN ×2 (02:35→20:59)
[2019-06-06 03:45] LABS: BASOPHILS # (AUTO) 0.1 /CMM (0.0-0.2); BASOPHILS % (AUTO) 0.8 % (0.0-2.0); EOSINOPHILS % (AUTO) 2.6 % (0.0-6.0); HEMATOCRIT 43 % (39-51); HEMOGLOBIN 14.9 g/dL (13.5-17.5); LYMPHOCYTES # (AUTO) 1.9 /CMM (0.8-4.8); LYMPHOCYTES % (AUTO) 28.9 % (20.0-44.0); MEAN CORPUSCULAR HGB CONC 35 g/dl (31.0-36.0); MEAN CORPUSCULAR VOLUME 93 fL (80-96); MONOCYTES # (AUTO) 0.6 /CMM (0.1-1.30); MONOCYTES % (AUTO) 8.3 % (2.0-12.0); NEUTROPHILS % (AUTO) 59.4 % (43.0-81.0); PLATELET COUNT (AUTO) 163 /CMM (150-450); RED BLOOD CELL COUNT(AUTO) 4.67 MIL/uL (4.5-6.0); WHITE BLOOD COUNT (AUTO) 6.7 K/uL (4.3-11.0)
[2019-06-06 03:55] LABS: CALCIUM, SERUM 8.5 mg/dL (8.5-10.1); CREATININE 0.8 mg/dL (0.6-1.3); MAGNESIUM 1.7 mg/dL (1.8-2.4); PHOSPHORUS 2.5 mg/dL (2.5-4.9); POTASSIUM 3.2 mmol/L (3.5-5.1)
[2019-06-06 06:11] VITALS: BP 138/80
--- NOTE | 2019-06-06 06:50 | NUR ---
MS RN CLOSING NOTES Patient intermittently asleep, easily awaken, non-verbal, responsive to verbal stimuli. On RA, no SOB/respiratory distress noted. All due meds given as ordered. All nursing needs attended. Kept on bed clean, dry and comfortable. Call light within easy reach. On fall precautions, on seizure precautions. Endorsed to the next shift.
--- NOTE | 2019-06-06 07:16 | NUR ---
MS RN NOTES PATIENT IN BED EYES CLOSED, EASY TO AROUSE, RESPOND TO VERBAL AND TACTILE STIMULI. NO ACUTE DISTRESS NOTED, NO SOB NOTED. SAFETY MESURES IN PLACE, HOB ELEVATED. HOB ELEVATED. CALL LIGHT WITHIN REACH. WILL CONTINUE TO MONITOR ACCORDINGLY.
[2019-06-06 08:00] VITALS: BP 133/77
[2019-06-06] MEDS ORDERED: FENTANYL PF 100MCG/2ML AMPUL ONE (08:46)
[2019-06-06] MEDS: MULTIVITAMINS,THERAGRAN 1 UDTAB TABLET PO SCH (09:00)
[2019-06-06] MEDS: ENOXAPARIN SODIUM 40 MG/0.4 ML DISP.SYRIN SQ SCH (09:00)
[2019-06-06] MEDS: FAMOTIDINE (20 MG) 20 MG TABLET PO SCH (09:00)
[2019-06-06] MEDS: CHOLECALCIFEROL 1,000 UNIT TABLET (VIT D3) PO SCH (09:00)
[2019-06-06] MEDS: DOCUSATE SODIUM LIQ 100 MG/10 ML UDC PO SCH (09:00)
[2019-06-06] MEDS: GABAPENTIN 100 MG CAPSULE PO SCH ×3 (09:00→17:00)
--- NOTE | 2019-06-06 09:00 | NUR ---
MS RN NOTES HELD LOVENOX , PATIENT TO HAVE SURGERY TODAY.
[2019-06-06] MEDS: LEVETIRACETAM (500MG) 1,500 MG in IV NS 0.9% 100 ML IV SCH ×2 (09:29→20:54)
[2019-06-06] MEDS: Magnesium 1GM/D5W 100ML PREMIX 100 ML IV SCH ×2 (10:29→12:57)
[2019-06-06] MEDS ORDERED: POTASSIUM CHLORIDE 20 MEQ TAB.PRT.SR PO SCH (10:30)
--- NOTE | 2019-06-06 11:00 | NUR ---
MS RN NOTES PATIENT TRANSPORTED TO OPERATING ROOM IN STABLE CONDITION.
--- NOTE | 2019-06-06 12:25 | NUR ---
MS RN NOTES PATIENT CAME BACK FROM RECOVERY ROOM WITH STABLE VITAL SIGNS, EYES CLOSED, RESPONSE TO VERBAL AND TACTILE STIMULI.
--- NOTE | 2019-06-06 13:25 | NUR ---
MS RN NOTES PATIENT WITH STABLE VITAL SIGNS, NO ACUTE DISTRESS NOTED, RESPOND TO VERBAL AND TACTILE STIMULI. NO SOB NOTED. WILL CONTINUE TO MONITOR PATIENT.
[2019-06-06] MEDS: LACOSAMIDE 50 MG in IV NS 0.9% 50 ML IV SCH ×2 (14:38→21:59)
[2019-06-06] MEDS: POTASSIUM CL. PREMIX PERIPHER. 50 ML IV SCH ×4 (15:53→19:24)
[2019-06-06 16:00] VITALS: BP 135/67
[2019-06-06] MEDS: PANTOPRAZOLE 40 MG VIAL IV SCH (17:14)
[2019-06-06] MEDS ORDERED: DIATR MEGLU/DIATRIZOATE SODIUM 30 ML BOTTLE (GASTROGRAPHIN) ONE (18:37)
--- NOTE | 2019-06-06 19:00 | NUR ---
MS RN NOTES PATIENT IN BED EYES CLOSED, EASY TO AROUSE, RESPOND TO VERBAL AND TACTILE STIMULI, VITAL SIGNS REMAIN STABLE .NO ACUTE DISTRESS NOTED, NO SOB NOTED. SAFETY MESURES IN PLACE, HOB ELEVATED. NGT INSERTED WITH ANOTHER RN , PATIENT TOLERATED WELL, CHEST XRAY DONE TO CONFIRM PLACEMENT AWAITING FOR RESULT, ENDORSE TO NIGHT NURSE FOR CONTINUITY OF CARE .
--- NOTE | 2019-06-06 19:20 | NUR ---
MS RN OPENING NOTES RECEIVED PATIENT FROM MORNING SHIFT, ALERT AND ORIENTED X 1. ABLE TO OPEN EYES WHEN CALLED BY HIS NAME. BREATHING REGULAR AND UNLABORED ON ROOM AIR. NG TUBE INTACT AWAITING XRAY RESULT FOR VERIFICATION. RIGHT WRIST G20 IV LINE INTACT AND PATENT, INFUSING WELL WITH NO BLEEDING OR S/S OF INFECTION/INFILTRATION NOTED. BODY ASSESSMENT DONE, SEEN WITH OLD GTUBE SITE SCAR. NO S/S OF PAIN/DISCOMFORT OBSERVED. BED LOW AND LOCKED ON SEMI FOWLERS POSITION. CALL LIGHT IN REACH. WILL CONTINUE TO MONITOR.
--- NOTE | 2019-06-06 19:40 | NUR ---
MS RN NOTES RECEIVED A CALL FROM RADIOLOGY REPORTING THAT NG TUBE WAS COILED IN THE LOWER THORACIC ESOPHAGUS AT GASTROESOPHAGEAL JUNCTION. SUGGEST TO REMOVE AND INSERT A NEW NG TUBE, CARRIED OUT. NEW NG TUBE INSERTED, STAT CXR ORDERED FRO PLACEMENT VERIFICATION. WILL CONTINUE TO MONITOR.
[2019-06-06] MEDS: CEFTRIAXONE 1 G in IV D5W 50 ML IV SCH (20:02)
[2019-06-06 20:21] VITALS: BP 131/77
[2019-06-06] MEDS: JEVITY 1.2 CAL 1,000 ML BOTTLE GT PRN (23:27)
--- NOTE | 2019-06-06 23:30 | NUR ---
MS RN NOTES NG TUBE PLACEMENT VERIFIED, STARTED ON JEVITY 1.2 AT 20CC/HR VIA FEEDING PUMP. WILL CONTINUE TO MONITOR.
[2019-06-06] MEDS: ATORVASTATIN 10 MG TABLET PO SCH (23:38)
--- NOTE | 2019-06-07 06:28 | NUR ---
MS RN CLOSING NOTES PATIENT IN BED ALERT AND ORIENTED X 1. ABLE TO OPEN EYES WHEN CALLED BY HIS NAME. BREATHING REGULAR AND UNLABORED ON ROOM AIR. NG TUBE INTACT AND PATENT WITH ON-GOING JEVITY 1.2 AT 40CC/HR, TOLERATING WELL. NO EPISODES OF NAUSEA/VOMITING NOTED WITHIN THE SHIFT, NO RESIDUAL ASPIRATED. MAINTAINED NPO AND ON ASPIRATION PRECAUTION. RIGHT WRIST G20 IV LINE INTACT AND PATENT, INFUSING WELL WITH NO BLEEDING OR S/S OF INFECTION/INFILTRATION NOTED. NO S/S OF PAIN/DISCOMFORT OBSERVED. BED LOW AND LOCKED ON SEMI FOWLERS POSITION. CALL LIGHT IN REACH. WILL ENDORSE TO MORNING SHIFT FOR ETHEL.
[2019-06-07 06:29] LABS: BASOPHILS % (AUTO) 0.4 % (0.0-2.0); EOSINOPHILS % (AUTO) 2.2 % (0.0-6.0); HEMATOCRIT 42 % (39-51); HEMOGLOBIN 14.3 g/dL (13.5-17.5); LYMPHOCYTES # (AUTO) 1.3 /CMM (0.8-4.8); LYMPHOCYTES % (AUTO) 20.9 % (20.0-44.0); MEAN CORPUSCULAR HGB CONC 35 g/dl (31.0-36.0); MEAN CORPUSCULAR VOLUME 93 fL (80-96); MONOCYTES # (AUTO) 0.4 /CMM (0.1-1.30); MONOCYTES % (AUTO) 6.8 % (2.0-12.0); NEUTROPHILS # (AUTO) 4.5 /CMM (1.8-8.9); NEUTROPHILS % (AUTO) 69.7 % (43.0-81.0); PLATELET COUNT (AUTO) 143 /CMM (150-450); RED BLOOD CELL COUNT(AUTO) 4.47 MIL/uL (4.5-6.0); WHITE BLOOD COUNT (AUTO) 6.4 K/uL (4.3-11.0)
[2019-06-07 06:45] LABS: CALCIUM, SERUM 8.2 mg/dL (8.5-10.1); CREATININE 0.8 mg/dL (0.6-1.3); MAGNESIUM 2.1 mg/dL (1.8-2.4); PHOSPHORUS 2.3 mg/dL (2.5-4.9); POTASSIUM 3.2 mmol/L (3.5-5.1)
--- NOTE | 2019-06-07 07:16 | NUR ---
MS RN NOTES PATIENT IN BED EYES CLOSED, EASY TO AROUSE, RESPOND TO VERBAL AND TACTILE STIMULI. NO ACUTE DISTRESS NOTED, NO SOB NOTED. SAFETY MESURES IN PLACE, HOB ELEVATED. NGT IN PLACE RUNNING JEVITY 1.2 @ 40 CC/HR TOLERATING WELL. HOB ELEVATED. CALL LIGHT WITHIN REACH. WILL CONTINUE TO MONITOR ACCORDINGLY.
[2019-06-07 08:00] VITALS: BP 118/68
[2019-06-07] MEDS: LEVETIRACETAM (500MG) 1,500 MG in IV NS 0.9% 100 ML IV SCH (08:45)
[2019-06-07] MEDS: DOCUSATE SODIUM LIQ 100 MG/10 ML UDC PO SCH (08:46)
[2019-06-07] MEDS: MULTIVITAMINS,THERAGRAN 1 UDTAB TABLET PO SCH (08:46)
[2019-06-07] MEDS: CHOLECALCIFEROL 1,000 UNIT TABLET (VIT D3) PO SCH (08:46)
[2019-06-07] MEDS: FAMOTIDINE (20 MG) 20 MG TABLET PO SCH (08:46)
[2019-06-07] MEDS: GABAPENTIN 100 MG CAPSULE PO SCH ×3 (08:46→16:48)
[2019-06-07] MEDS: LACOSAMIDE 50 MG TABLET GT SCH ×2 (09:48→23:45)
[2019-06-07] MEDS: ENOXAPARIN SODIUM 40 MG/0.4 ML DISP.SYRIN SQ SCH (10:20)
[2019-06-07] MEDS: POTASSIUM CHLORIDE 20 MEQ POWDER PACKET GT SCH ×2 (10:22→11:38)
[2019-06-07] MEDS ORDERED: NEUTRA PHOS 1 POWD.PACKET GT ONE (11:00)
[2019-06-07] MEDS: IV D5/0.45 NACL 1,000 ML IV PRN (13:30)
[2019-06-07 16:00] VITALS: BP 113/66
[2019-06-07] MEDS: PANTOPRAZOLE 40 MG VIAL IV SCH (16:48)
--- NOTE | 2019-06-07 18:48 | NUR ---
MS RN NOTES PATIENT IN BED EYES CLOSED, EASY TO AROUSE, RESPOND TO VERBAL AND TACTILE STIMULI. NO ACUTE DISTRESS NOTED, NO SOB NOTED. KEPT CLEAN DRY AMD COMFORTABLE. NEEDS ATTENDED AND ANTICIPATED. SAFETY MESURES IN PLACE, HOB ELEVATED. NGT IN PLACE RUNNING JEVITY 1.2 @ 50CC/HR TOLERATING WELL. HOB ELEVATED. CALL LIGHT WITHIN REACH. WILL ENDORSE TO NIGHT NURSE FOR CONTINUITY OF CARE.
--- NOTE | 2019-06-07 19:25 | NUR ---
MS RN NOTES PATIENT IN BED AWAKE, NON VERBAL, NO ACUTE DISTRESS NOTED, NO SOB NOTED. NGT IN PLACE, RESPIRATIONS EVEN AND UNLABORED CALL LIGHT WITHIN REACH. WILL CONTINUE TO MONITOR ACCORDINGLY.
[2019-06-07 20:00] VITALS: BP_SYST 126; BP_SYST 128; BP_DIAS 69; BP_DIAS 89
--- NOTE | 2019-06-07 20:25 | NUR ---
PT REMOVED NGT TUBE DESPITE EXPLAINING RISKS AND BENEFITS, WILL RE INSERT AGAIN
[2019-06-07] MEDS: CEFTRIAXONE 1 G in IV D5W 50 ML IV SCH (20:46)
--- NOTE | 2019-06-07 21:23 | NUR ---
PAGED HOSPITALIST SPOKE TO DR. CHRISTIANE NAVARRO RELAYED PT KEPT ON REMOVING HIS NGT TUBE DESPITE EXPLAINING RISKS AND BENEFITS. PER DR. CHRISTIANE POND ORDER SOFT WRIST BILATERAL RESTRAINT READ BACK AND VERIFIED ORDERS NOTED AND CARRIED OUT
--- NOTE | 2019-06-07 21:28 | NUR ---
INSERTED FR 18 NASOGASTRIC TUBE TO LEFT NARES TOLERATED PROCEDURE WELL WITH POSITIVE PLACEMENT. AUSCULTATED PT ABDOMEN WITH POSITIVE PLACEMENT WILL CONT TO MTR. CHEST XRAY ORDER STAT
--- NOTE | 2019-06-07 23:00 | NUR ---
CHEST X-RAY POSITIVE PLACEMENT WILL START FEEDING Addendum: 06/08/19 at 0124 by ANUP PABLO RN NGT VERIFIED POSITIVE PLACEMENT
--- NOTE | 2019-06-07 23:01 | NUR ---
MS RN START NGT FEEDING ORDERED ADVANCE TO @ 60 MLS/HR 5ML RESIDUAL. WILL CONT TO MTR
[2019-06-07] MEDS: LEVETIRACETAM SOL (5 ML) 100 MG/ML UDC GT SCH (23:44)
[2019-06-07] MEDS: ATORVASTATIN 10 MG TABLET PO SCH (23:45)
[2019-06-08] MEDS: IV D5/0.45 NACL 1,000 ML IV PRN (02:50)
[2019-06-08] MEDS: JEVITY 1.2 CAL 1,000 ML BOTTLE GT PRN ×2 (02:51→21:16)
[2019-06-08 06:28] LABS: BASOPHILS % (AUTO) 0.3 % (0.0-2.0); EOSINOPHILS % (AUTO) 5.1 % (0.0-6.0); HEMATOCRIT 43 % (39-51); HEMOGLOBIN 14.4 g/dL (13.5-17.5); LYMPHOCYTES # (AUTO) 1.7 /CMM (0.8-4.8); MEAN CORPUSCULAR HGB CONC 33 g/dl (31.0-36.0); MEAN CORPUSCULAR VOLUME 94 fL (80-96); MONOCYTES # (AUTO) 0.5 /CMM (0.1-1.30); MONOCYTES % (AUTO) 6.9 % (2.0-12.0); NEUTROPHILS # (AUTO) 5.2 /CMM (1.8-8.9); NEUTROPHILS % (AUTO) 65.7 % (43.0-81.0); PLATELET COUNT (AUTO) 135 /CMM (150-450); RED BLOOD CELL COUNT(AUTO) 4.57 MIL/uL (4.5-6.0); WHITE BLOOD COUNT (AUTO) 7.9 K/uL (4.3-11.0)
--- NOTE | 2019-06-08 06:29 | NUR ---
MS RN ASLEEP AND EASILY AWAKEN, CALM, NGT INTACT AT LEFT NARES INFUSING JEVITY AT 60 MLS/HR. CHECKED BILATERAL SOFT WRIST RESTRAINT WITH GOOD CIRCULATION. NO S/S OF DISTRESS, NURSING CARE RENDERED, KEPT CLEAN AND DRY AND COMFORTABLE. NEEDS ATTENDED AND ANTICIPATED. ASSISTED REPOSITION EVERY 2 HOURS. SAFETY MEASURES AT ALL TIMES. ENDORSE TO THE NEXT SHIFT.
[2019-06-08 06:51] LABS: CALCIUM, SERUM 8.4 mg/dL (8.5-10.1); CREATININE 0.8 mg/dL (0.6-1.3); MAGNESIUM 1.9 mg/dL (1.8-2.4); PHOSPHORUS 2.4 mg/dL (2.5-4.9); POTASSIUM 3.3 mmol/L (3.5-5.1)
--- NOTE | 2019-06-08 07:32 | NUR ---
MS RN OPENING NOTES RECEIVED PATIENT IN BED RESTING COMFORTABLY IN MODERATE HIGH BACK REST. A/O X1. NO S/S OF DISTRESS NOTED AT THIS TIME. ON IV FLUIDS ON RIGHT WRIST# 20 WITH D5 1/2 NS RUNNING @ 75ML/HR. PATENT AND INTACT. NGT NOTED WITH JEVITY RUNNING AT 60ML/HR. SAFETY MEASURES IN PLACE, BED IN LOW LOCKED POSITION WITH SIDE RAILS UP X2. CALL LIGHT WITHIN REACH. WILL CONTINUE TO MONITOR.
[2019-06-08 08:00] VITALS: BP 137/83
[2019-06-08] MEDS: LEVETIRACETAM SOL (5 ML) 100 MG/ML UDC GT SCH ×2 (08:53→21:29)
[2019-06-08] MEDS: DOCUSATE SODIUM LIQ 100 MG/10 ML UDC PO SCH (08:53)
[2019-06-08] MEDS: MULTIVITAMINS,THERAGRAN 1 UDTAB TABLET PO SCH (08:54)
[2019-06-08] MEDS: GABAPENTIN 100 MG CAPSULE PO SCH ×3 (08:54→16:34)
[2019-06-08] MEDS: LACOSAMIDE 50 MG TABLET GT SCH ×2 (08:54→21:29)
[2019-06-08] MEDS: FAMOTIDINE (20 MG) 20 MG TABLET PO SCH (08:54)
[2019-06-08] MEDS: CHOLECALCIFEROL 1,000 UNIT TABLET (VIT D3) PO SCH (08:54)
[2019-06-08] MEDS: ENOXAPARIN SODIUM 40 MG/0.4 ML DISP.SYRIN SQ SCH (08:59)
[2019-06-08] MEDS ORDERED: POTASSIUM CHLORIDE 20 MEQ POWDER PACKET GT SCH (09:30)
[2019-06-08] MEDS ORDERED: NEUTRA PHOS 1 POWD.PACKET GT ONE (11:30)
[2019-06-08 16:00] VITALS: BP 125/95
[2019-06-08] MEDS: PANTOPRAZOLE 40 MG VIAL IV SCH (16:35)
--- NOTE | 2019-06-08 18:42 | NUR ---
MS RN CLOSING NOTES PATIENT IN BED RESTING COMFORTABLY IN MODERATE HIGH BACK REST. A/O X1. NO S/S OF DISTRESS NOTED THROUGHOUT THE SHIFT. IV ACCESS ON RIGHT WRIST# 20, SL. PATENT AND INTACT. NGT NOTED WITH JEVITY RUNNING AT 60ML/HR. ALL NURSING NEEDS PROVIDED. SAFETY MEASURES IN PLACE, BED IN LOW LOCKED POSITION WITH SIDE RAILS UP X2. CALL LIGHT WITHIN REACH. WILL ENDORSE TO PLAN EXAMINER NURSE FOR ETHEL.
--- NOTE | 2019-06-08 19:25 | NUR ---
MS RN PATIENT IN BED AWAKE NON VERBAL, NGT IN PLACE INFUSING TUBE FEEDING ORDERED CURRENTLY AT JEVITY @ 60 MLS/HR. RESPIRATIONS EVEN AND UNLABORED, NO S/S OF DISTRESS CALL LIGHT WITHIN REACH. WILL CONTINUE TO MONITOR ACCORDINGLY.
[2019-06-08 20:00] VITALS: BP 139/78
--- NOTE | 2019-06-08 20:00 | NUR ---
Ms rn ADVANCE NGT TUBE FEEDING TO 70MLS/HR RESIDUAL LESS THAN 5CC. WILL CONT TO MTR
[2019-06-08] MEDS: CEFTRIAXONE 1 G in IV D5W 50 ML IV SCH (20:54)
[2019-06-08] MEDS: ATORVASTATIN 10 MG TABLET PO SCH (21:31)
--- NOTE | 2019-06-09 06:28 | NUR ---
MS RN NO SIGNIFICANT CHANGES THROUGHOUT THE SHIFT. PT SLEPT WELL, LEFT NARES NGT INTACT AND INFUSING JEVITY AT 70 MLS/HR. AM CARE RENDERED, OFFLOAD HEELS AND ELBOWS. REPOSITION EVERY 2 HOURS. NO S/S OF DISTRESS, NURSING CARE RENDERED, KEPT CLEAN AND DRY AND COMFORTABLE. NEEDS ATTENDED AND ANTICIPATED. SAFETY MEASURES AT ALL TIMES. ENDORSE TO THE NEXT SHIFT. Addendum: 06/09/19 at 0634 by ANUP PABLO RN BILATERAL SOFT WRIST RESTRAINT ON WITH GOOD CIRCULATION
[2019-06-09 06:55] LABS: BASOPHILS % (AUTO) 0.6 % (0.0-2.0); EOSINOPHILS % (AUTO) 4.7 % (0.0-6.0); HEMATOCRIT 42 % (39-51); HEMOGLOBIN 14.2 g/dL (13.5-17.5); LYMPHOCYTES # (AUTO) 2.1 /CMM (0.8-4.8); LYMPHOCYTES % (AUTO) 26.5 % (20.0-44.0); MEAN CORPUSCULAR HGB CONC 34 g/dl (31.0-36.0); MEAN CORPUSCULAR VOLUME 94 fL (80-96); MONOCYTES # (AUTO) 0.6 /CMM (0.1-1.30); MONOCYTES % (AUTO) 7.4 % (2.0-12.0); NEUTROPHILS # (AUTO) 4.8 /CMM (1.8-8.9); NEUTROPHILS % (AUTO) 60.8 % (43.0-81.0); PLATELET COUNT (AUTO) 148 /CMM (150-450); RED BLOOD CELL COUNT(AUTO) 4.51 MIL/uL (4.5-6.0)
[2019-06-09 07:08] LABS: CALCIUM, SERUM 8.6 mg/dL (8.5-10.1); CREATININE 0.8 mg/dL (0.6-1.3); MAGNESIUM 1.9 mg/dL (1.8-2.4); PHOSPHORUS 3.6 mg/dL (2.5-4.9); POTASSIUM 3.6 mmol/L (3.5-5.1)
--- NOTE | 2019-06-09 07:30 | NUR ---
INITIAL RECEIVED PATIENT IN BED RESTING COMFORTABLY IN MODERATE HIGH BACK REST. A/O X1. NO S/S OF DISTRESS NOTED AT THIS TIME. OFF IV FLUIDS RIGHT WRIST# 22 H/K. NGT NOTED WITH JEVITY RUNNING AT 60ML/HR. SAFETY MEASURES IN PLACE, BED IN LOW LOCKED POSITION WITH SIDE RAILS UP X2. CALL LIGHT WITHIN REACH. WILL CONTINUE TO MONITOR.
[2019-06-09 08:00] VITALS: BP 140/88
[2019-06-09] MEDS: GABAPENTIN 100 MG CAPSULE PO SCH ×3 (09:06→17:20)
[2019-06-09] MEDS: MULTIVITAMINS,THERAGRAN 1 UDTAB TABLET PO SCH (09:06)
[2019-06-09] MEDS: DOCUSATE SODIUM LIQ 100 MG/10 ML UDC PO SCH (09:06)
[2019-06-09] MEDS: CHOLECALCIFEROL 1,000 UNIT TABLET (VIT D3) PO SCH (09:06)
[2019-06-09] MEDS: LACOSAMIDE 50 MG TABLET GT SCH ×2 (09:06→20:28)
[2019-06-09] MEDS: FAMOTIDINE (20 MG) 20 MG TABLET PO SCH (09:06)
[2019-06-09] MEDS: ENOXAPARIN SODIUM 40 MG/0.4 ML DISP.SYRIN SQ SCH (09:08)
[2019-06-09] MEDS: LEVETIRACETAM SOL (5 ML) 100 MG/ML UDC GT SCH ×2 (09:08→20:28)
[2019-06-09] MEDS: JEVITY 1.2 CAL 1,000 ML BOTTLE GT PRN (13:41)
[2019-06-09 16:00] VITALS: BP 150/93
[2019-06-09] MEDS: TOBRAMYCIN/DEXAMETH OPHTH DORPS 2.5 ML BOTTLE EACHEYE SCH ×2 (17:30→20:29)
[2019-06-09] MEDS: PANTOPRAZOLE 40 MG VIAL IV SCH (17:54)
--- NOTE | 2019-06-09 18:04 | NUR ---
CLOSING PATIENT IN BED RESTING COMFORTABLY IN MODERATE HIGH BACK REST. A/O X1. NO S/S OF DISTRESS NOTED THROUGHOUT THE SHIFT. IV ACCESS ON RIGHT WRIST# 22, SL. PATENT AND INTACT. NGT NOTED WITH JEVITY RUNNING AT 60ML/HR. ALL NURSING NEEDS PROVIDED. SAFETY MEASURES IN PLACE, BED IN LOW LOCKED POSITION WITH SIDE RAILS UP X2. CALL LIGHT WITHIN REACH. WILL ENDORSE TO CLINICAL BUSINESS MANAGER NURSE FOR CONTINUITY OF CARE.
--- NOTE | 2019-06-09 19:15 | NUR ---
RN PM OPENING NOTE. BEDSIDE REPORT RECIEVED FROM GUILHERME HANCOCK. PATIENT IN BED RESTING COMFORTABLY IN NO APPARENT DISTRESS. AO X1. NO S/S OF DISTRESS NOTED. IV ACCESS ON RIGHT WRIST# 22, SL. PATENT AND INTACT. NGT NOTED WITH JEVITY RUNNING AT 70ML/HR. NGT CHECKED FOR PATENCY AND IS INTACT. SAFETY MEASURES IN PLACE, BED IN LOW LOCKED POSITION WITH SIDE RAILS UP X2. BED ALARM ACTIVE. PATIENT HAS BILAT WRIST RESTRAINTS WITH GOOD SIGNS OF CIRCULATION IN HANDS. CALL LIGHT WITHIN REACH. WILL CONT TO MONITOR.
[2019-06-09 20:00] VITALS: BP 147/77
[2019-06-09] MEDS: CEFTRIAXONE 1 G in IV D5W 50 ML IV SCH (20:30)
[2019-06-09] MEDS: ATORVASTATIN 10 MG TABLET PO SCH (22:33)
[2019-06-10] MEDS: TOBRAMYCIN/DEXAMETH OPHTH DORPS 2.5 ML BOTTLE EACHEYE SCH ×6 (01:59→22:41)
[2019-06-10] MEDS: JEVITY 1.2 CAL 1,000 ML BOTTLE GT PRN (04:21)
--- NOTE | 2019-06-10 05:12 | NUR ---
BED BATH, NEW TUBE FEEDING AT 70 ML HUNG AND STARTED. DRESSING CHANGED. DRESSING CHANGED TO ABD SCANT SANGUINOUS DRAINAGE ON DRESSING. PATIENT GIVEN BED BATH CHANGED. RESTRAINTS RELEASED THEN REAPPLIED. RESIDUAL 10 ML. JEVITY BOTTLE CHANGED AND CONTINUED AT 70 ML PER HOUR. PATIENT REPOSITIENED TO RIGHT SIDE. WILL CONT TO MONITOR. BED DOWN LOCKED SRX3. IN SEMI FOWLERS AT 35 DEGREES.
--- NOTE | 2019-06-10 07:28 | NUR ---
MS RN OPENING NOTES RECEIVED PATIENT ASLEEP IN BED RESTING COMFORTABLY IN MODERATE HIGH BACK REST WITH NO SIGNS OF DISTRESS NOTED AT THIS TIME. AWAKE BUT NON-VERBAL. IV ACCESS ON LFA #22, SL. INTACT AND PATENT. NO FACIAL GRIMACING OR GROANING TO INDICATE PAIN OR DISCOMFORT. NOTED WITH NGT WITH JEVITY RUNNING @70ML/HR. SAFETY MEASURES IN PLACE, BED IN LOW LOCKED POSITION WITH SIDE RAILS UP X2. CALL LIGHT WITHIN REACH. WILL CONTINUE TO MONITOR.
[2019-06-10 08:00] VITALS: BP 138/79
[2019-06-10] MEDS: MULTIVITAMINS,THERAGRAN 1 UDTAB TABLET PO SCH (08:32)
[2019-06-10] MEDS: DOCUSATE SODIUM LIQ 100 MG/10 ML UDC PO SCH (08:32)
[2019-06-10] MEDS: LEVETIRACETAM SOL (5 ML) 100 MG/ML UDC GT SCH ×2 (08:32→22:41)
[2019-06-10] MEDS: GABAPENTIN 100 MG CAPSULE PO SCH ×3 (08:33→16:42)
[2019-06-10] MEDS: CHOLECALCIFEROL 1,000 UNIT TABLET (VIT D3) PO SCH (08:33)
[2019-06-10] MEDS: LACOSAMIDE 50 MG TABLET GT SCH ×2 (08:33→22:41)
[2019-06-10] MEDS: FAMOTIDINE (20 MG) 20 MG TABLET PO SCH (08:33)
[2019-06-10] MEDS: ENOXAPARIN SODIUM 40 MG/0.4 ML DISP.SYRIN SQ SCH (08:35)
--- NOTE | 2019-06-10 10:10 | NUR ---
RN NOTES SEEN AND EXAMINED BY DR. WINTERS, ORDERED CT ABDOMEN WITHOUT CONTRAST STAT, HOLD OFF FEEDING MIDNIGHT 06/10 FOR EGD WITH PEG PLACEMENT IN THE AM (06/11/19).
[2019-06-10 16:00] VITALS: BP 139/75
[2019-06-10] MEDS: PANTOPRAZOLE 40 MG VIAL IV SCH (16:42)
--- NOTE | 2019-06-10 18:36 | NUR ---
MS RN CLOSING NOTES PATIENT IN BED RESTING COMFORTABLY IN MODERATE HIGH BACK REST WITH NO SIGNS OF DISTRESS THROUGHOUT THE SHIFT. AWAKE BUT NON-VERBAL. IV ACCESS ON LFA #22, SL. INTACT AND PATENT. NO FACIAL GRIMACING OR GROANING TO INDICATE PAIN OR DISCOMFORT. ON NGT WITH JEVITY RUNNING @70ML/HR. SAFETY MEASURES IN PLACE, BED IN LOW LOCKED POSITION WITH SIDE RAILS UP X2. CALL LIGHT WITHIN REACH. WILL ENDORSE TO ASSOCIATE PROFESSOR OF LITERATURE NURSE FOR ETHEL.
--- NOTE | 2019-06-10 19:10 | NUR ---
MS RN PM OPENING NOTES BEDSIDE REPORT RECIEVED FROM AFRICA HANCOCK. PATIENT IN BED RESTING COMFORTABLY IN SEMIFOWLERS POSITION WITH NO SIGNS OF DISTRESS THROUGHOUT THE SHIFT. AWAKE BUT NON-VERBAL. IV ACCESS ON LFA #22, SL. INTACT AND PATENT. PATIENT IN NO APPARENT PAIN OR DISCOMFORT. NGT WITH JEVITY RUNNING @70ML/HR TO LEFT NARE RESIDUAL CHECK OF 15 ML. SAFETY MEASURES IN PLACE, BED IN LOW LOCKED POSITION WITH SIDE RAILS UP X2. CALL LIGHT WITHIN REACH. WILL CONT TO MONITOR.
[2019-06-10 20:06] VITALS: BP 119/65
--- NOTE | 2019-06-10 21:50 | NUR ---
patient was able to radiological equipment specialist ng tube. and pulled prison out. tube feeding stopped. patient was in no apparent distress. patient not coughing. breathing normally. will attempt reinsertion.
--- NOTE | 2019-06-10 22:40 | NUR ---
ngt insertion attempted to left nare but met with resistance. patient had scant bloody discharge from nose. pressure appplied and bleeding stopped. ngt reinserted to right nare without resistance. placement confirmed from aspiration and auscultation of air. . patient has no coughing or exhibiting signs of displacement. . Addendum: 06/10/19 at 2311 by VEE DREW RN 14fr ngt inserted Addendum: 06/11/19 at 0119 by VEE DREW RN tube feeding not restarted. patient to be npo after midnight.
[2019-06-10] MEDS: ATORVASTATIN 10 MG TABLET PO SCH (22:47)
--- NOTE | 2019-06-10 23:03 | NUR ---
per lee ann medical technologist prn nurse stat cxr ordered per protocol to check placement.
--- NOTE | 2019-06-11 01:17 | NUR ---
ngt advanced 5 cm per recommendation of cxr. patient tolerated well. placement confirmed with aspiration and auscultation.
[2019-06-11] MEDS: TOBRAMYCIN/DEXAMETH OPHTH DORPS 2.5 ML BOTTLE EACHEYE SCH ×6 (01:55→21:31)
[2019-06-11 06:19] LABS: BASOPHILS # (AUTO) 0.1 /CMM (0.0-0.2); BASOPHILS % (AUTO) 0.6 % (0.0-2.0); EOSINOPHILS % (AUTO) 3.9 % (0.0-6.0); HEMATOCRIT 48 % (39-51); HEMOGLOBIN 16.3 g/dL (13.5-17.5); LYMPHOCYTES % (AUTO) 23.1 % (20.0-44.0); MEAN CORPUSCULAR HGB CONC 34 g/dl (31.0-36.0); MEAN CORPUSCULAR VOLUME 94 fL (80-96); MONOCYTES # (AUTO) 0.6 /CMM (0.1-1.30); MONOCYTES % (AUTO) 6.5 % (2.0-12.0); NEUTROPHILS # (AUTO) 5.8 /CMM (1.8-8.9); NEUTROPHILS % (AUTO) 65.9 % (43.0-81.0); PLATELET COUNT (AUTO) 126 /CMM (150-450); RED BLOOD CELL COUNT(AUTO) 5.13 MIL/uL (4.5-6.0); WHITE BLOOD COUNT (AUTO) 8.8 K/uL (4.3-11.0)
--- NOTE | 2019-06-11 06:45 | NUR ---
MS RN PM CLOSING NOTES PATIENT IN BED RESTING COMFORTABLY IN SEMIFOWLERS POSITION WITH NO SIGNS OF DISTRESS. AWAKE BUT NON-VERBAL. IV ACCESS ON LFA #22, SL. INTACT AND PATENT. PATIENT IN NO APPARENT PAIN OR DISCOMFORT. NGT WITH CLAMPED TO RIGHT NARE RESIDUAL CHECK OF 30 ML. SAFETY MEASURES IN PLACE, BED IN LOW LOCKED POSITION WITH SIDE RAILS UP X2. CALL LIGHT WITHIN REACH. WILL CONT TO MONITOR. PATIENT SCHEDULED FOR SURGERAT AT 930 AM.
[2019-06-11 06:49] LABS: ALBUMIN 3.2 g/dL (3.4-5.0); BILIRUBIN,TOTAL 0.6 mg/dL (0.2-1.0); CALCIUM, SERUM 9.3 mg/dL (8.5-10.1); CREATININE 0.8 mg/dL (0.6-1.3); POTASSIUM 3.8 mmol/L (3.5-5.1); TOTAL PROTEIN, SERUM 8.8 g/dL (6.4-8.2)
--- NOTE | 2019-06-11 07:48 | NUR ---
MS RN OPENING NOTES RECEIVED PT LAYING IN BED WITH HOB ELEVATED. PT IS NONVERBAL BUT RESPONDS TO NAME AND STIMULI. RESPIRATIONS ARE EVEN AND UNLABORED, NOT IN ANY ACUTE DISTRESS NOTED. NO FACIAL GRIMACING OR MOANING. IV SITE TO RFA INTACT, NO INFILTRATION NOTED. DRESSING KEPT CLEAN AND DRY. NG TUBE IN PLACE, PATENT, FREE OF KINKS. BILATERAL WRIST RESTRAINTS APPLIED D/T PT PULLING OUT TUBINGS. SAFETY MEASURES ARE IN PLACE. WILL MONITOR THROUGHOUT SHIFT FOR CONTINUITY OF CARE.
[2019-06-11 08:00] VITALS: BP 131/80
[2019-06-11] MEDS: GABAPENTIN 100 MG CAPSULE PO SCH ×3 (09:00→16:41)
[2019-06-11] MEDS: DOCUSATE SODIUM LIQ 100 MG/10 ML UDC PO SCH (09:00)
[2019-06-11] MEDS: FAMOTIDINE (20 MG) 20 MG TABLET PO SCH (09:00)
[2019-06-11] MEDS: LACOSAMIDE 50 MG TABLET GT SCH ×2 (09:00→21:31)
[2019-06-11] MEDS: MULTIVITAMINS,THERAGRAN 1 UDTAB TABLET PO SCH (09:00)
[2019-06-11] MEDS: CHOLECALCIFEROL 1,000 UNIT TABLET (VIT D3) PO SCH (09:00)
[2019-06-11] MEDS: ENOXAPARIN SODIUM 40 MG/0.4 ML DISP.SYRIN SQ SCH (09:00)
[2019-06-11] MEDS: LEVETIRACETAM SOL (5 ML) 100 MG/ML UDC GT SCH ×2 (09:00→21:31)
--- NOTE | 2019-06-11 09:15 | NUR ---
MS RN NOTES-- PT P/U BY SURGERY FOR EGD/PEG PLACEMENT, UNABLE TO GIVE MORNING MEDICATIONS.
--- NOTE | 2019-06-11 11:20 | NUR ---
MS RN NOTES-- PT CAME BACK FROM OR IN STABLE CONDITION. PEG PLACEMENT DONE. PER DR. WINTERS, USE TUBE FOR FEEDING TOMORROW AM, USE PEG FOR WATER AND MEDS IN 4 HOURS. ORDERS NOTED AND CARRIED OUT. WILL CONTINUE TO MONITOR.
--- NOTE | 2019-06-11 11:26 | NUR ---
MS RN NOTES-- CALLED COMMERCIAL LENDING ASSISTANT TO CLARIFY TUBE FEEDING ORDERS. TO START JEVITY 1.2 @50ML/HR IN AM TO REACH GOAL AT 70ML/HR.
[2019-06-11 16:00] VITALS: BP 128/86
[2019-06-11] MEDS: PANTOPRAZOLE 40 MG VIAL IV SCH (16:41)
--- NOTE | 2019-06-11 18:29 | NUR ---
MS RN CLOSING NOTES NEEDS MET AND RENDERED. PT IS NONVERBAL BUT RESPONSIVE TO NAME AND STIMULI, AFEBRILE. RESPIRATIONS ARE EVEN AND UNLABORED, NOT IN ANY ACUTE DISTRESS NOTED. NO FACIAL GRIMACING OR MOANING NOTED, NO N/V, SOB. IV SITE TO LFA INTACT, NO INFILTRATION NOTED. DRESSING KEPT CLEAN AND DRY. PEG TUBE IN PLACE, PATENT. SAFETY MEASURES ARE IN PLACE. CALL LIGHT IS LEFT WITHIN REACH. WILL ENDORSE TO NEXT SHIFT FOR CONTINUITY OF CARE.
--- NOTE | 2019-06-11 19:30 | NUR ---
MS RN OPENING NOTE RECEIVED PATIENT IN BED. PATENT IS ALERT TO NAME, AND TACTILE STIMULI, NONVERBAL. ON 2L/MIN VIA NASAL CANNULA. RESPIRATIONS ARE EVEN AND UNLABORED. NO SOB NOTED. PATIENT DOES HAVE A UNPRODUCTIVE COUGH. NO S/S OF PAIN OR DISCOMFORT. IN NO APPARENT DISTRESS. IV ACCESS IN LFA#22 PATENT AND SALINE LOCKED. BILATERAL WRIST RESTRAINTS PRESENT, CHECKED, 2 FINGERS ABLE TO GO UNDER, NO REDNESS AT THIS TIME. GTUBE PRESENT, ASPIRATED, 5ML CLEAR RESIDUAL, AUSCULTATED POSITIVE PLACEMENT, FLUSHED WITH 30ML FLUID WITH NO RESISTANCE, GTUBE SITE LOOKS RED WITH NO DRAINAGE. BED IS LOW AND LOCKED, HOB ELEVATED 45 DEGREES, SIDE RAILS UP X3, BED ALARM ON, CALL LIGHT WITHIN REACH. WILL CONTINUE TO MONITOR.
[2019-06-11 20:00] VITALS: BP 135/94
--- NOTE | 2019-06-11 20:25 | NUR ---
MS HANCOCK NOTE DISCONTINUED BILATERAL SOFT WRIST RESTRAINTS AT THIS TIME. Addendum: 06/11/19 at 1334 by DARRYL SMITH RN Amended: Links added.
[2019-06-11] MEDS: ATORVASTATIN 10 MG TABLET PO SCH (21:31)
--- NOTE | 2019-06-11 21:31 | NUR ---
MS RN NOTE ADMINISTERED PRN ACETAMINOPHEN 650MG FOR TEMP 99.7. WILL CONTINUE TO MONITOR.
[2019-06-12] MEDS: TOBRAMYCIN/DEXAMETH OPHTH DORPS 2.5 ML BOTTLE EACHEYE SCH ×5 (00:17→17:49)
--- NOTE | 2019-06-12 03:25 | NUR ---
MS RN NOTE OBTAINED ORDERS FOR BILATERAL SOFT WRIST RESTRAINT D/T PATIENT TRYING TO PULL OUT LINES, AND GTUBE. DESPITE OTHER RESOURCES USED: REDIRECTION, HIDING LINES, INCREASE MONITORING PATIENT IS STILL TRYING TO PULL OUT LINES AND BEING UNCOOPERATIVE. WILL CONTINUE TO MONITOR Q2HR.
[2019-06-12] MEDS: JEVITY 1.2 CAL 1,000 ML BOTTLE GT PRN (06:14)
--- NOTE | 2019-06-12 06:33 | NUR ---
MS RN CLOSING NOTE PATIENT IN BED. REMAINS ALERT TO NAME, AND TACTILE STIMULI, NONVERBAL. REMAINS ON 2L/MIN VIA NASAL CANNULA. RESPIRATIONS ARE EVEN AND UNLABORED. NO SOB NOTED. CONTINUES TO HAVE A NONPRODUCTIVE COUGH. NO S/S OF PAIN OR DISCOMFORT THROUGHOUT SHIFT. NO DISTRESS NOTED. IV ACCESS MAINTAINED IN LFA#22 PATENT AND SALINE LOCKED. BILATERAL WRIST RESTRAINTS REMAIN PRESENT, CHECKED, 2 FINGERS ABLE TO GO UNDER, NO REDNESS. GTUBE MAINTAINED, FLUSHED WITH 30ML FLUID WITH NO RESISTANCE, STARTED TUBE FEEDING JEVITY 1.2 @20ML/HR, CHANGED DRESSING. BED REMAINS LOW AND LOCKED, HOB ELEVATED 45 DEGREES, SIDE RAILS UP X3, BED ALARM ON, CALL LIGHT WITHIN REACH. WILL CONTINUE TO ENDORSE TO NEXT SHIFT.
[2019-06-12 06:41] LABS: BASOPHILS % (AUTO) 0.4 % (0.0-2.0); EOSINOPHILS % (AUTO) 3.3 % (0.0-6.0); HEMATOCRIT 44 % (39-51); LYMPHOCYTES # (AUTO) 1.6 /CMM (0.8-4.8); LYMPHOCYTES % (AUTO) 17.9 % (20.0-44.0); MEAN CORPUSCULAR HGB CONC 34 g/dl (31.0-36.0); MEAN CORPUSCULAR VOLUME 94 fL (80-96); MONOCYTES # (AUTO) 0.5 /CMM (0.1-1.30); NEUTROPHILS # (AUTO) 6.6 /CMM (1.8-8.9); NEUTROPHILS % (AUTO) 72.4 % (43.0-81.0); PLATELET COUNT (AUTO) 147 /CMM (150-450); RED BLOOD CELL COUNT(AUTO) 4.73 MIL/uL (4.5-6.0); WHITE BLOOD COUNT (AUTO) 9.1 K/uL (4.3-11.0)
[2019-06-12 07:00] LABS: CALCIUM, SERUM 8.9 mg/dL (8.5-10.1); CREATININE 0.8 mg/dL (0.6-1.3); MAGNESIUM 2.1 mg/dL (1.8-2.4); PHOSPHORUS 3.6 mg/dL (2.5-4.9); POTASSIUM 4.6 mmol/L (3.5-5.1)
[2019-06-12 08:00] VITALS: BP 138/82
--- NOTE | 2019-06-12 08:20 | NUR ---
ms rn received on bed, awake,nonverbal patient, w/ g tube running at 20ml/hour,patient on restrain, will monitor patient.
[2019-06-12] MEDS: MULTIVITAMINS,THERAGRAN 1 UDTAB TABLET PO SCH (09:44)
[2019-06-12] MEDS: DOCUSATE SODIUM LIQ 100 MG/10 ML UDC PO SCH (09:44)
[2019-06-12] MEDS: CHOLECALCIFEROL 1,000 UNIT TABLET (VIT D3) PO SCH (09:44)
[2019-06-12] MEDS: LEVETIRACETAM SOL (5 ML) 100 MG/ML UDC GT SCH (09:45)
[2019-06-12] MEDS: FAMOTIDINE (20 MG) 20 MG TABLET PO SCH (09:45)
[2019-06-12] MEDS: ENOXAPARIN SODIUM 40 MG/0.4 ML DISP.SYRIN SQ SCH (09:48)
--- NOTE | 2019-06-12 10:00 | NUR ---
ms rn held feeding, residual of 210ml.
[2019-06-12] MEDS ORDERED: LEVE100S GT (10:11)
[2019-06-12] MEDS ORDERED: LACT-209 GT (10:11)
[2019-06-12] MEDS ORDERED: LACO50TA2 GT (10:11)
[2019-06-12] MEDS ORDERED: ACET325T53 PO (10:11)
[2019-06-12] MEDS ORDERED: TOBR2.5D EACHEYE (10:11)
--- NOTE | 2019-06-12 12:00 | NUR ---
ms rn continued feeding, residual 70ml.
--- NOTE | 2019-06-12 14:20 | NUR ---
ms rn checked residual - 60ml, rate increase from 30ml to 50ml at this time.
[2019-06-12] MEDS: LACOSAMIDE 50 MG TABLET GT SCH (14:44)
[2019-06-12 16:00] VITALS: BP 133/72
--- NOTE | 2019-06-12 16:40 | NUR ---
ms rn g tube residual of 100ml , continued feeding at 50ml per charge nurse. will soon be discharge.
[2019-06-12] MEDS: PANTOPRAZOLE 40 MG VIAL IV SCH (17:49)
--- NOTE | 2019-06-12 19:00 | NUR ---
ms rn patient transferred to [facility], report given to sonal newton, was aware of latest temp, 99.5 per axilla. all needs attended.
== END 2019-06-12 19:30 | DRG 252 ==
LOC: ER 14:08 → MED 17:14
PROVIDERS: ATTEND Registered Nurse
PROC: 0DJ08ZZ Inspection of Upper Intestinal Tract, Via Natural or Artificial Opening Endoscopic (ICD-10-PCS; 2019-06-06)
PROC: 0DH63UZ Insertion of Feeding Device into Stomach, Percutaneous Approach (ICD-10-PCS; principal; 2019-06-11)
DX: K94.23 Gastrostomy malfunction (principal); G92 Toxic encephalopathy; D68.59 Other primary thrombophilia; R13.10 Dysphagia, unspecified; I11.0 Hypertensive heart disease with heart failure; I50.32 Chronic diastolic (congestive) heart failure; E83.42 Hypomagnesemia; G40.909 Epilepsy, unspecified, not intractable, without status epilepticus; E87.6 Hypokalemia; F41.9 Anxiety disorder, unspecified; N39.0 Urinary tract infection, site not specified; I70.0 Atherosclerosis of aorta; K44.9 Diaphragmatic hernia without obstruction or gangrene; Z79.899 Other long term (current) drug therapy; Y84.9 Medical procedure, unspecified as the cause of abnormal reaction of the patient, or of later complication, without mention of misadventure at the time of the procedure; Y82.9 Unspecified medical devices associated with adverse incidents; Y92.10 Unspecified residential institution as the place of occurrence of the external cause; Z74.01 Bed confinement status; M46.06 Spinal enthesopathy, lumbar region; M06.9 Rheumatoid arthritis, unspecified; B96.20 Unspecified Escherichia coli [E. coli] as the cause of diseases classified elsewhere
CPT/HCPCS: 36415; 43246; 70450-TC; 71045-TC; 74018; 74150-TC; 80048-TC; 80053-TC; 80061-TC; 80076-TC; 81000-TC; 82962-TC; 83605-TC; 83735-TC; 84100-TC; 84443-TC; 84484-TC; 85025-TC; 85610-TC; 85730-TC; 86850-TC; 87040-TC; 87081-TC; 87086-TC; 87186-TC; 92526; 92611-TC; 97112-TC; 97530-TC; A4216; C9113; G0378; J0690; J0696; J1650; J1953; J2405; J2704; J3010; J3475; J3480; J3490; J7030; J7050; J7060; Q9963

== ENCOUNTER 2019-12-09 16:49 | Inpatient (IN) | payer MEDICAID ==
[~2019-12-09] VITALS: Ht 177.8 cm; Wt 77.1 kg
[~2019-12-09 16:49] MED LIST changes: -ACET-868 GT; +ACET325T53 PO; +ATOR10TA GT; -ATOR10TA PO; -BISA10SU11 RC; +CHOL100044 GT; -CHOL100044 PO; -CLON1TAB GT; +DOCU50LI GT; -DOCU50LI PO; +FAMO20TA80 GT; -FAMO20TA80 PO; +GABA-532 GT; -GABA-532 PO; -HYDR-4384 GT; +LACO100T2 GT; +LACO50TA2 GT; +LACT-209 GT; -LACT10SO GT; +LEVE100S GT; -LEVE100S PO; +LORA2VIA11 IM; -MAGN400O6 GT; +MULT-24 GT; -MULT-24 PO; -NA P133E RC; -NUTR250L50 GT; +TOBR2.5D EACHEYE; -ZOLP5TAB2 GT
--- NOTE | 2019-12-09 17:00 | NUR ---
[facility] From [facility], "Fever, Low O2sats, R/O Covid" TO ER BED 5, HOOKED TO CARDIAC, BP MONITOR AND POX, CHANGED TO HOSP GOWN, PATIENT AO x 1, AWAITING MD MARIA. PLACED PATIENT ON O2, NASAL CANNULA 3LPM, O2 SATURATION AFTER AT 95%
--- NOTE | 2019-12-09 17:24 | NUR ---
DR HYDE AT BEDSIDE
[2019-12-09] MEDS ORDERED: CRAN3875 GT (17:27)
[2019-12-09] MEDS ORDERED: NA P133E RC (17:27)
[2019-12-09] MEDS ORDERED: BISA10SU11 RC (17:27)
[2019-12-09] MEDS ORDERED: ACET-868 GT (17:27)
[2019-12-09] MEDS ORDERED: AMIN30LI27 GT (17:27)
[2019-12-09] MEDS ORDERED: NUTR250L50 GT (17:27)
[2019-12-09] MEDS ORDERED: MAGN400O6 GT (17:27)
[2019-12-09] MEDS ORDERED: IV NS 0.9% 500 ML BAG IV ONE (17:30)
[2019-12-09 17:44] LABS: EOSINOPHILS % (AUTO) 0.7 % (0.0-6.0); LYMPHOCYTES # (AUTO) 1.7 /CMM (0.8-4.8); MONOCYTES # (AUTO) 0.5 /CMM (0.1-1.30); WHITE BLOOD COUNT (AUTO) 5.3 K/uL (4.3-11.0)
[2019-12-09 17:45] LABS: APPEARANCE,URINE Clear (CLEAR); BILIRUBIN,URINE Negative (NEGATIVE); BLOOD, URINE Negative Ery/uL (NEGATIVE); COLOR,URINE Yellow (YELLOW); KETONES,URINE Negative (NEGATIVE); LEUKOCYTE ESTERASE ,URINE Negative (NEGATIVE); NITRITE, URINE Negative (NEGATIVE); PROTEIN,URINE Negative (NEGATIVE); UGLUCOSE Negative (NEGATIVE); UROBILINOGEN,URINE 0.2 EU/dL (0.2)
[2019-12-09 17:47] LABS: BASOPHILS % (AUTO) 0.5 % (0.0-2.0); HEMATOCRIT 47 % (39-51); LYMPHOCYTES % (AUTO) 31.9 % (20.0-44.0); MEAN CORPUSCULAR HGB CONC 34 g/dl (31.0-36.0); MEAN CORPUSCULAR VOLUME 93 fL (80-96); MONOCYTES % (AUTO) 9.3 % (2.0-12.0); NEUTROPHILS # (AUTO) 3.1 /CMM (1.8-8.9); NEUTROPHILS % (AUTO) 57.6 % (43.0-81.0); PLATELET COUNT (AUTO) 88 /CMM (150-450)
[2019-12-09 18:02] LABS: CARBON DIOXIDE 31 mmol/L (21-32); CHLORIDE 103 mmol/L (98-107); CREATININE 1.1 mg/dL (0.6-1.3); GLUCOSE 114 mg/dL (74-106); POTASSIUM 3.9 mmol/L (3.5-5.1); SODIUM SERUM 140 mmol/L (136-145); UREA NITROGEN, BLOOD 16 mg/dL (7-18)
[2019-12-09 18:14] LABS: ALANINE AMINOTRANSFERASE 54 U/L (12-78); ALBUMIN 3.2 g/dL (3.4-5.0); ALKALINE PHOSPHATASE 132 U/L (46-116); ASPARTATE AMINOTRANSFERASE 47 U/L (15-37); B-TYPE NATRIURETIC PEPTIDE 32 PG/ML (0-125); BILIRUBIN,TOTAL 0.4 mg/dL (0.2-1.0); TOTAL PROTEIN, SERUM 8.5 g/dL (6.4-8.2)
[2019-12-09 18:33] LABS: BAND % (MANUAL) 6 % (0.0-5.0); EOSINOPHILS % (MANUAL) 1 % (0-4); LYMPHOCYTES % (MANUAL) 30 % (16-48); MONOCYTES % (MANUAL) 2 % (0-11.0); NEUTROPHILS % (MANUAL) 61 (42-76)
[2019-12-09] MEDS ORDERED: ACETAMINOPHEN 650 MG/SUPP.RECT RC ONE ×2 (18:34→19:00)
[2019-12-09] MEDS ORDERED: CEFTRIAXONE 1GM BAG (ER ONLY) 1 GM/50 ML PIGGYBACK IV ONE (19:30)
[2019-12-09] MEDS ORDERED: VANCOMYCIN 1 GM in IV D5W 250 ML IV ONE (19:30)
[2019-12-09] MEDS ORDERED: AZITHROMYCIN 500 MG in IV D5W 250 ML IV ONE (19:30)
[2019-12-09] MEDS ORDERED: CEFTRIAXONE 1GM BAG (ER ONLY) 50 ML IV ONE (19:52)
[2019-12-09] MEDS ORDERED: VANCOMYCIN 1 GM VIAL ONE (19:52)
[2019-12-09] MEDS ORDERED: AZITHROMYCIN 500 MG VIAL ONE (19:59)
--- NOTE | 2019-12-09 20:03 | NUR ---
CALLED NURSING SUP FOR BED
--- NOTE | 2019-12-09 20:40 | NUR ---
NICOLAS CAMPOS DATA ENTRY MANAGER AT BEDSIDE FOR EVALUATION
--- NOTE | 2019-12-09 21:04 | NUR ---
BED ASSIGNMENT 101
--- NOTE | 2019-12-09 21:27 | NUR ---
REPORT GIVEN TO VARGHESE HANCOCK OF TELE UNIT
[2019-12-09] MEDS ORDERED: ONDANSETRON HCL/PF 4 MG/2 ML VIAL IVP PRN (22:00)
[2019-12-09] MEDS ORDERED: HYDROCODONE/APAP 5/325MG 1 EACH TABLET PO PRN (22:00)
[2019-12-09] MEDS ORDERED: ZOLPIDEM TARTRATE 5 MG TABLET PO PRN (22:00)
--- NOTE | 2019-12-09 22:05 | NUR ---
telescope repairerchildcare center administrator notes Received Pt from ER nurse. Pt arrived at the unit with a guashlyn and ACLS protocol. Pt is alert and orientedX1. Respiration is normal in 2 L NC. No SOB. No S/S of distress noted. Tele monitor showed SR Hr at 80. IV sites at L hand# 20 is clean, intact, patent and flush without resistance. Stomach G tube feeding noted with 0 residual, and patent. Skin assessment is done and performed. Skin is intact. Pt came with a noriega cath. Noriega cath is intact, patent and draining yellow urine. Pt came with no belongings. Admission orders received from BHAVNA Vaughan. Safety precautions is maintained. Bed at low position, brakes locked, side railsupX2 and padded, bed alarm is on and call light is within reach. Will continue to monitor.
[2019-12-09 22:10] VITALS: BP 104/61
[2019-12-09] MEDS ORDERED: BISACODYL SUPP (10 MG) 10 MG/SUPP.RECT SUPP.RECT RC PRN (23:00)
[2019-12-09] MEDS ORDERED: ATORVASTATIN 10 MG TABLET GT SCH (23:00)
[2019-12-09] MEDS ORDERED: LORAZEPAM INJ 2 MG/ML VIAL IM PRN (23:00)
[2019-12-09 23:01] LABS: ABG BASE EXCESS 1.1 mmol/L; ABG OXYGEN SATURATION 94.9 % (92.0-98.5); ABG PCO2 40.2 mmHg (35.0-45.0); ABG PH 7.422 (7.350-7.450); ABG PO2 77.1 mmHg (75.0-100.0); AaDO2 75.1 mmHg; COHb 0.3 % (0.5-1.5); MetHb 0.4 % (0.0-1.5); O2Hb 94.2 % (94.0-97.0); SITE, ABG Left Radial
[2019-12-09] MEDS: LEVETIRACETAM SOL (5 ML) 100 MG/ML UDC GT SCH (23:24)
[2019-12-09] MEDS: LACOSAMIDE ORAL SOLN 50 MG/5 ML UDC PO SCH (23:24)
[2019-12-09] MEDS ORDERED: JEVITY 1.2 CAL 1,000 ML BOTTLE GT PRN (23:30)
[2019-12-10] VITALS (7 sets, daily range): BP systolic 110–127; BP diastolic 64–73
[2019-12-10 01:57] LABS: CREATINE KINASE, TOTAL 69 U/L (39-308); FERRITIN 2562 ng/mL (8-388)
--- NOTE | 2019-12-10 02:06 | NUR ---
film waxer notes Informed and notified BHAVNA Vaughan about Pt's ferritin level 2562.
[2019-12-10] MEDS: HYDROXYCHLOROQUINE 200 MG TABLET PO SCH ×2 (02:57→13:42)
--- NOTE | 2019-12-10 06:39 | NUR ---
cloth stretcher closing notes Pt is resting in bed comfortably. Pt is alert and orientedX1. Respiration is normal in 2 L NC. No SOB. No S/S of distress noted. VS is stable. Tele monitor showed SR Hr at 84 bpm. IV sites at L hand# 20 is clean, intact and patent. G-tube feeding is intact, patent and running jevity 1.2 @ 55ml/hr. Pt tolerated well. Vazquez cath is intact, patent and draining yellow urine. Routine meds were given as ordered. kept Pt clean, dry and comfortable. Turned and repositioned Q 2 HR. All needs met and attended. Safety precautions is maintained. Bed at low position, brakes locked, side rails upX2 and padded, bed alarm is on and call light is within reach. Will endorse to morning nurse for ETHEL.
[2019-12-10 06:59] LABS: BASOPHILS % (AUTO) 0.5 % (0.0-2.0); EOSINOPHILS % (AUTO) 1.7 % (0.0-6.0); HEMATOCRIT 44 % (39-51); HEMOGLOBIN 14.9 g/dL (13.5-17.5); LYMPHOCYTES # (AUTO) 1.6 /CMM (0.8-4.8); LYMPHOCYTES % (AUTO) 33.9 % (20.0-44.0); MEAN CORPUSCULAR HGB CONC 34 g/dl (31.0-36.0); MEAN CORPUSCULAR VOLUME 93 fL (80-96); MONOCYTES # (AUTO) 0.8 /CMM (0.1-1.30); MONOCYTES % (AUTO) 16.5 % (2.0-12.0); NEUTROPHILS # (AUTO) 2.2 /CMM (1.8-8.9); NEUTROPHILS % (AUTO) 47.4 % (43.0-81.0); PLATELET COUNT (AUTO) 71 /CMM (150-450); WHITE BLOOD COUNT (AUTO) 4.7 K/uL (4.3-11.0)
[2019-12-10 07:17] LABS: CALCIUM, SERUM 8.6 mg/dL (8.5-10.1); MAGNESIUM 1.8 mg/dL (1.8-2.4); PHOSPHORUS 3.7 mg/dL (2.5-4.9); POTASSIUM 3.3 mmol/L (3.5-5.1)
--- NOTE | 2019-12-10 07:30 | NUR ---
RN OPENING NOTE RECEIVED PATIENT IN BED. NO ACUTE DISTRESS NOTED. A&OX1, TAGALOG SPEAKING ONLY. PT. IS CONFUSED. PT. IS ON 2L O2 VIA NC AND IS SATURATING WELL AT 95%. BREATHING IS EVEN AND UNLABORED. PT. IS ON TELE MONITOR, SR NOTED. GIANG IN PLACE, SITE IN TACT AND NO S/S OF INFECTION. G TUBE IN PLACE, NO RESIDUAL, PATENT, INTACT WITH NO S/S OF INFECTION. TOLERATING FEEDING WELL. IV IN LEFT HAND, INTACT, PATENT, FLUSHED WELL, NO S/S OF INFECTION. SAFETY MAINTAINED. CALL LIGHT WITHIN REACH. WILL CONTINUE TO ROUND AND MONITOR CLOSELY.
--- NOTE | 2019-12-10 08:00 | NUR ---
RN NOTE G TUBE FEEDING STOPPED PER MD ORDER. WILL CONTINUE FEEDING AT 1200 PER MD ORDER.
[2019-12-10] MEDS: LACOSAMIDE ORAL SOLN 50 MG/5 ML UDC PO SCH ×2 (08:38→20:11)
[2019-12-10] MEDS: MULTIVITAMINS,THERAGRAN 1 UDTAB TABLET GT SCH (08:39)
[2019-12-10] MEDS: LEVETIRACETAM SOL (5 ML) 100 MG/ML UDC GT SCH ×2 (08:39→20:11)
[2019-12-10] MEDS: GABAPENTIN 100 MG CAPSULE GT SCH ×3 (08:39→17:30)
[2019-12-10] MEDS: FAMOTIDINE (20 MG) 20 MG TABLET GT SCH (11:10)
[2019-12-10] MEDS ORDERED: POTASSIUM CHLORIDE 20 MEQ POWDER PACKET GT SCH (11:30)
--- NOTE | 2019-12-10 12:00 | NUR ---
RN NOTE CONTINUING G TUBE FEEDING, PATIENT TOLERATING WELL, NO RESIDUAL NOTED. SAFETY MAINTAINED, CALL LIGHT WITHIN REACH, WILL CONTINUE TO MONITOR.
[2019-12-10] MEDS ORDERED: POTASSIUM CHLORIDE 20 MEQ POWDER PACKET NG SCH (13:30)
[2019-12-10] MEDS: DOCUSATE SODIUM LIQ 100 MG/10 ML UDC GT SCH (17:30)
[2019-12-10] MEDS: CHOLECALCIFEROL 1,000 UNIT TABLET (VIT D3) GT SCH (17:30)
--- NOTE | 2019-12-10 19:56 | NUR ---
RN NOTE PATIENT STABLE THROUGHOUT SHIFT. NO ACUTE CHANGES NOTED. WILL CONTINUE TAKING CARE OF THE PATIENT UNTIL NEXT SHIFT. SAFETY MAINTAINED, CALL LIGHT WITHIN REACH, WILL CONTINUE TO MONITOR.
[2019-12-10] MEDS: JEVITY 1.2 CAL 1,000 ML BOTTLE GT PRN (20:20)
[2019-12-11] VITALS: BP 130/67
--- NOTE | 2019-12-11 00:50 | NUR ---
RN NOTE PATIENT HAS A TEMPERATURE OF 100 F. PLACED PATIENT ON COOLING MEASURES. ICE PACKS PLACED AROUND THE PATIENT. SAFETY MAINTAINED, CALL LIGHT WITHIN REACH, WILL CONTINUE TO MONITOR.
[2019-12-11 04:00] VITALS: BP 130/72
--- NOTE | 2019-12-11 05:37 | NUR ---
RN NOTE NO ACUTE CHANGES TO PATIENT CONDITION DURING MY SHIFT. PATIENT HAD AN ELEVATED TEMPERATURE AT 100F, WAS CONTROLLED VIA COOLING MEASURES, LATEST TEMPERATURE WAS 97.5. PATIENT REMAINED SATURATING WELL ON NC, NO SOB NOTED, BREATHING EVEN AND UNLABORED. PATIENT KEPT CLEAN AND DRY, TUBE FEEDING WAS RUNNING ORDERED. SAFETY MAINTAINED, CALL LIGHT WITHIN REACH, WILL ENDORSE TO AM NURSE TO CONTINUE CARE.
[2019-12-11 07:06] LABS: POTASSIUM 3.7 mmol/L (3.5-5.1)
[2019-12-11 08:00] VITALS: BP 131/78
--- NOTE | 2019-12-11 08:00 | NUR ---
RN NOTE RECEIVED PATIENT IN BED. NO ACUTE DISTRESS NOTED. A&OX1, PT. IS CONFUSED. ON 2L O2 VIA NC AND IS SATURATING WELL AT 95%. BREATHING IS EVEN AND UNLABORED. PT. IS ON TELE MONITOR, SR -[address] DRAINING YELLOW OUTPUT, G TUBE IN PLACEMENT AND RESIDUAL CHECKED, STOP FEEDING AT THIS TIME PER ORDER, ADMINISTERED SCHEDULED MEDICATION VIA GT.IV IN LEFT HAND, INTACT, PATENT, V/S STABLE. ASSIST TURN AND REPOSTION Q 2 HR, KEEP HOB ELEVATED FOR ASPIRATION PRECAUTION. SAFETY MAINTAINED. CALL LIGHT WITHIN REACH. WILL CONTINUE TO ROUND AND MONITOR CLOSELY.
[2019-12-11] MEDS: MULTIVITAMINS,THERAGRAN 1 UDTAB TABLET GT SCH (10:13)
[2019-12-11] MEDS: GABAPENTIN 100 MG CAPSULE GT SCH ×3 (10:13→16:54)
[2019-12-11] MEDS: LEVETIRACETAM SOL (5 ML) 100 MG/ML UDC GT SCH ×2 (10:13→21:44)
[2019-12-11] MEDS: Z GUARD REMEDY 2 OZ OINT TP PRN (10:14)
[2019-12-11] MEDS: FAMOTIDINE (20 MG) 20 MG TABLET GT SCH (10:38)
[2019-12-11] MEDS: LACOSAMIDE ORAL SOLN 50 MG/5 ML UDC PO SCH ×2 (10:38→21:44)
[2019-12-11 12:00] VITALS: BP 132/71
[2019-12-11] MEDS ORDERED: POTASSIUM CHLORIDE 20 MEQ POWDER PACKET NG SCH (12:00)
--- NOTE | 2019-12-11 12:00 | NUR ---
RN NOTES STARTED GT FEEDING BACK, PATIENT STABLE ADMINISTERED SCHEDULED MEDICATION. ASSIST TURN AND REPOSTION Q 2HR. HOB KEEP ELEVATED.
[2019-12-11 16:00] VITALS: BP 122/81
--- NOTE | 2019-12-11 16:16 | NUR ---
rn notes PATIENT T-99.9 CALLED [facility] AND GET ORDER TYLENOL 650 RECTAL PRN Q6HR. ORDER TAKEN AND CARRIED OUT.
[2019-12-11] MEDS: DOCUSATE SODIUM LIQ 100 MG/10 ML UDC GT SCH (16:53)
[2019-12-11] MEDS: CHOLECALCIFEROL 1,000 UNIT TABLET (VIT D3) GT SCH (16:53)
[2019-12-11] MEDS: ACETAMINOPHEN 650 MG/SUPP.RECT RC PRN (16:54)
--- NOTE | 2019-12-11 16:54 | NUR ---
RN NOTES ADMINISTERED TYLENOL 650 RECTAL SUPPOSITORY FOR T-99.9, ALSO ADMINISTERED SCHEDULED MEDICATION VIA GT. PATIENT TOLERATING FEEDING WELL 55 ML/HR INTACT. KEEP HOB ELEVATED FOR ASPIRATION PRECAUTION, ALSO GAVE PATIENT COOLING APPLICANT. CONTINUED MONITORING.
--- NOTE | 2019-12-11 18:18 | NUR ---
RN NOTES ADMINISTERED SCHEDULED MEDICATION V/S STABLE, TEMPERATURE 99.6 AT THIS TIME, GT FEEDING INTACT PATIENT TOLERATED WELL 55 ML/HR. ASSIST TURN AND REPOSTION Q 2 HR. CALL LIGHT WITHIN TO REACH. HOB KEEP ELEVATED. PER PATIENT SISTER WANTED TO SEE BROTHER, BUT WHEN DIALED NUMBER NO ANSWERING, LEFT MASSAGE. ENDORSED ONCOMING NURSE FOLLOW PLAN OF CARE.
[2019-12-11] MEDS: AZITHROMYCIN 250 MG TABLET PO SCH (18:38)
[2019-12-11] MEDS: HYDROXYCHLOROQUINE 200 MG TABLET PO SCH (18:38)
--- NOTE | 2019-12-11 19:15 | NUR ---
TUBE BUFFER NOTES RECEIVED TELEPHONE NOTIFICATION FROM BALJEET AT THE LAB PT IS COVID-19 POSITIVE. NAD AND NO SOB AT THIS TIME.BED LOCKED AND LOWEST POSITION. WILL CONT TO MONITOR
[2019-12-11 20:00] VITALS: BP 114/72
[2019-12-11] MEDS: MUPIROCIN OINT 2% 22 GM TUBE SCH (21:44)
[2019-12-11] MEDS: JEVITY 1.2 CAL 1,000 ML BOTTLE GT PRN (22:18)
[2019-12-12] VITALS: BP 113/62
[2019-12-12 04:00] VITALS: BP 111/72
[2019-12-12 06:56] LABS: BASOPHILS % (AUTO) 0.2 % (0.0-2.0); EOSINOPHILS % (AUTO) 0.9 % (0.0-6.0); HEMATOCRIT 44 % (39-51); HEMOGLOBIN 14.9 g/dL (13.5-17.5); LYMPHOCYTES % (AUTO) 19.4 % (20.0-44.0); MEAN CORPUSCULAR HGB CONC 34 g/dl (31.0-36.0); MEAN CORPUSCULAR VOLUME 92 fL (80-96); MONOCYTES # (AUTO) 0.4 /CMM (0.1-1.30); MONOCYTES % (AUTO) 8.1 % (2.0-12.0); NEUTROPHILS # (AUTO) 3.6 /CMM (1.8-8.9); NEUTROPHILS % (AUTO) 71.4 % (43.0-81.0); PLATELET COUNT (AUTO) 80 /CMM (150-450); RED BLOOD CELL COUNT(AUTO) 4.77 MIL/uL (4.5-6.0)
--- NOTE | 2019-12-12 07:20 | NUR ---
MORTICIAN HELPER NOTES PATIENT AWAKE IN BED, NO RESPIRATORY DISTRESS, NO S/S OF DISCOMFORT OR PAIN AT THIS TIME. TRAVEL CONSULTANT ON SR 89. PATIENT'S SKIN WARM TO TOUCH, IV ACCESS SITE INTACT AND PATENT. GT INTACT AND JEVITY RUNNING AT 55ML/HR. PATIENT'S NEEDS ATTENDED, BED ON LOWEST LOCKED POSITION, CALL LIGHT WITHIN REACH. WILL CONTINUE TO MONITOR.
[2019-12-12 07:26] LABS: ALBUMIN 3.1 g/dL (3.4-5.0); BILIRUBIN,TOTAL 0.7 mg/dL (0.2-1.0); CALCIUM, SERUM 8.9 mg/dL (8.5-10.1); CREATININE 0.9 mg/dL (0.6-1.3); MAGNESIUM 1.8 mg/dL (1.8-2.4); PHOSPHORUS 3.7 mg/dL (2.5-4.9); POTASSIUM 3.8 mmol/L (3.5-5.1); TOTAL PROTEIN, SERUM 8.1 g/dL (6.4-8.2)
[2019-12-12 08:00] VITALS: BP_SYST 112; BP_SYST 141; BP_DIAS 65; BP_DIAS 76
[2019-12-12] MEDS: HYDROXYCHLOROQUINE 200 MG TABLET PO SCH ×2 (08:37→21:18)
[2019-12-12] MEDS: LEVETIRACETAM SOL (5 ML) 100 MG/ML UDC GT SCH ×2 (08:37→21:18)
[2019-12-12] MEDS: MUPIROCIN OINT 2% 22 GM TUBE SCH ×2 (08:38→21:18)
[2019-12-12] MEDS: MULTIVITAMINS,THERAGRAN 1 UDTAB TABLET GT SCH (08:38)
[2019-12-12] MEDS: GABAPENTIN 100 MG CAPSULE GT SCH ×2 (08:38→12:10)
[2019-12-12] MEDS: LACOSAMIDE ORAL SOLN 50 MG/5 ML UDC PO SCH ×2 (08:47→21:19)
[2019-12-12 12:00] VITALS: BP 134/77
[2019-12-12] MEDS: FAMOTIDINE (20 MG) 20 MG TABLET GT SCH (12:10)
[2019-12-12] MEDS: ACETAMINOPHEN 650 MG/SUPP.RECT RC PRN (14:37)
[2019-12-12 16:00] VITALS: BP_SYST 116; BP_SYST 135; BP_DIAS 76; BP_DIAS 82
[2019-12-12] MEDS: AZITHROMYCIN 250 MG TABLET PO SCH (18:56)
--- NOTE | 2019-12-12 18:59 | NUR ---
PRODUCTION DEPARTMENT SUPERVISOR NOTES PATIENT AWAKE IN BED, NO RESPIRATORY DISTRESS, NO S/S OF DISCOMFORT OR PAIN AT THIS TIME. TRAVELING SALES REPRESENTATIVE ON SR 90 PATIENT'S SKIN WARM TO TOUCH, IV ACCESS SITE INTACT AND PATENT. GT INTACT AND JEVITY RUNNING AT 55ML/HR. F/C INTACT AND DRAINING YELLOW URINE. PATIENT'S NEEDS ATTENDED, BED ON LOWEST LOCKED POSITION, CALL LIGHT WITHIN REACH. WILL ENDORSE TO ONCOMING NURSE.
[2019-12-12 20:00] VITALS: BP 122/68
[2019-12-12] MEDS ORDERED: LACOSAMIDE ORAL SOLN 50 MG/5 ML UDC ONE (21:06)
[2019-12-12] MEDS: GABAPENTIN 100 MG CAPSULE PO SCH (21:18)
[2019-12-12] MEDS: DOCUSATE SODIUM LIQ 100 MG/10 ML UDC GT SCH (21:18)
[2019-12-13] VITALS (7 sets, daily range): BP systolic 105–117; BP diastolic 48–75
[2019-12-13] MEDS: JEVITY 1.2 CAL 1,000 ML BOTTLE GT PRN ×2 (03:35→21:28)
[2019-12-13] MEDS: ACETAMINOPHEN 650 MG/SUPP.RECT RC PRN (03:48)
[2019-12-13 07:01] LABS: BASOPHILS % (AUTO) 0.2 % (0.0-2.0); EOSINOPHILS % (AUTO) 0.7 % (0.0-6.0); HEMATOCRIT 44 % (39-51); HEMOGLOBIN 14.6 g/dL (13.5-17.5); LYMPHOCYTES % (AUTO) 23.6 % (20.0-44.0); MEAN CORPUSCULAR HGB CONC 33 g/dl (31.0-36.0); MEAN CORPUSCULAR VOLUME 92 fL (80-96); MONOCYTES # (AUTO) 0.4 /CMM (0.1-1.30); MONOCYTES % (AUTO) 9.3 % (2.0-12.0); NEUTROPHILS # (AUTO) 2.7 /CMM (1.8-8.9); NEUTROPHILS % (AUTO) 66.2 % (43.0-81.0); PLATELET COUNT (AUTO) 80 /CMM (150-450); RED BLOOD CELL COUNT(AUTO) 4.73 MIL/uL (4.5-6.0); WHITE BLOOD COUNT (AUTO) 4.1 K/uL (4.3-11.0)
[2019-12-13 07:11] LABS: ALBUMIN 2.9 g/dL (3.4-5.0); BILIRUBIN,TOTAL 0.7 mg/dL (0.2-1.0); CALCIUM, SERUM 8.9 mg/dL (8.5-10.1); MAGNESIUM 1.8 mg/dL (1.8-2.4); PHOSPHORUS 4.1 mg/dL (2.5-4.9); POTASSIUM 3.4 mmol/L (3.5-5.1); TOTAL PROTEIN, SERUM 7.7 g/dL (6.4-8.2)
--- NOTE | 2019-12-13 07:40 | NUR ---
RN OPENING NOTE: RECEIVED PATIENT IN BED THIS MORNING. PATIENT IS ALERT AND ORIENTED X2. PATIENT IS ON 4L/MIN O2 VIA NC. NO SIGNS OF RESPIRATORY DISTRESS NOTED. PATIENT ON TELE MONITOR, SR 98. NO SIGNS OF ACUTE DISTRESS NOTED. PATIENT HAS IV #20 ON L HAND, C/D/I, FLUSHES WELL, NO SIGNS OF COMPLICATIONS NOTED. GIANG CATHETER DRAINING WELL, CLEAR YELLOW URINE. PATIENT HAS GT, C/D/I, NO RESIDUAL NOTED, RUNNING JEVITY 1.2 @ 55C/HR, TOLERATING WELL. SAFETY MEASURES IMPLEMENTED, BED IN LOWEST POSITION, LOCKED, SIDE RAILS UP X2, CALL LIGHT WITHIN REACH. WILL CONTINUE TO MONITOR PATIENT FOR CHANGES.
[2019-12-13] MEDS: LEVETIRACETAM SOL (5 ML) 100 MG/ML UDC GT SCH ×2 (08:12→21:18)
[2019-12-13] MEDS: CHOLECALCIFEROL 1,000 UNIT TABLET (VIT D3) GT SCH (08:12)
[2019-12-13] MEDS: HYDROXYCHLOROQUINE 200 MG TABLET PO SCH ×2 (08:12→21:18)
[2019-12-13] MEDS: GABAPENTIN 100 MG CAPSULE PO SCH ×2 (08:13→21:18)
[2019-12-13] MEDS: FAMOTIDINE (20 MG) 20 MG TABLET GT SCH (08:13)
[2019-12-13] MEDS: MULTIVITAMINS,THERAGRAN 1 UDTAB TABLET GT SCH (08:13)
[2019-12-13] MEDS: MUPIROCIN OINT 2% 22 GM TUBE SCH ×2 (08:14→21:39)
[2019-12-13 08:17] LABS: C-REACTIVE PROTEIN 2.5 mg/dL (0.0-0.9)
[2019-12-13] MEDS: LACOSAMIDE ORAL SOLN 50 MG/5 ML UDC PO SCH ×2 (08:21→21:22)
[2019-12-13 10:09] LABS: BAND % (MANUAL) 2 % (0.0-5.0); EOSINOPHILS % (MANUAL) 1 % (0-4); LYMPHOCYTES % (MANUAL) 16 % (16-48); MONOCYTES % (MANUAL) 10 % (0-11.0); NEUTROPHILS % (MANUAL) 71 (42-76)
[2019-12-13] MEDS ORDERED: POTASSIUM CHLORIDE 20 MEQ POWDER PACKET GT SCH (11:00)
--- NOTE | 2019-12-13 12:34 | NUR ---
GAVE REPORT TO SANTI NASH
[2019-12-13] MEDS ORDERED: POTASSIUM CHLORIDE 20 MEQ POWDER PACKET NG SCH (13:00)
--- NOTE | 2019-12-13 13:00 | NUR ---
RECEIVED PT SITTING IN BED AND GOES TO THE TOILET NEEDED.AMBULATES ALONG THE HALLWAY WEARING MASK.PT IS COMPLIANT WITH MEDS.DENIES PAIN OR DISTRESS AND IS SO EAGER TO GO HOME. Addendum: 12/13/19 at 1528 by CHARITY VO RN PLS IGNORE ABOVE NOTES,DOCUMENTED ON THE WRONG PATIENT
--- NOTE | 2019-12-13 13:00 | NUR ---
RECEIVED PATIENT IS ALERT AND ORIENTED X2. PATIENT IS ON 4L/MIN O2 VIA NC. NO SIGNS OF RESPIRATORY DISTRESS NOTED. PATIENT ON TELE MONITOR, SR 98. NO SIGNS OF ACUTE DISTRESS NOTED. PATIENT HAS IV #20 ON L HAND, C/D/I, FLUSHES WELL, NO SIGNS OF COMPLICATIONS NOTED. GIANG CATHETER DRAINING WELL, CLEAR YELLOW URINE. PATIENT HAS GT, C/D/I, NO RESIDUAL NOTED, RUNNING JEVITY 1.2 @ 55C/HR, TOLERATING WELL. ON CONTACT AND DROPLET PRECAUTIONS.SAFETY MEASURES IMPLEMENTED, BED IN LOWEST POSITION, LOCKED, SIDE RAILS UP X2, CALL LIGHT WITHIN REACH. WILL CONTINUE TO MONITOR PATIENT FOR CHANGES.
[2019-12-13] MEDS: PROSOURCE / PROSTAT (PYXIS) 30 ML UDC GT SCH ×2 (14:21→21:38)
[2019-12-13] MEDS: AZITHROMYCIN 250 MG TABLET PO SCH (17:41)
--- NOTE | 2019-12-13 17:41 | NUR ---
PT IS RESTING IN BED COMFORTABLY.VERBALLY RESPONSIVE.DENIES PAIN OR DISTRESS. ON CONTACT AND DROPLET ISOLATION PRECAUTIONS WITH NO SYMPTOMS OF COUGHING, FEVER OR SOB PRESENT THROUGHOUT THE SHIFT. WITH ONGOING GT FEEDING OF JEVITY AT 55 ML/HR INFUSING WELL WITH NO RESIDUALS NOTED.HOB ELEVATED.TURNED END REPOSITIONED EVERY TWO HRS AND ORAL CARE RENDERED. WILL CONTINUE TO MONITOR.
--- NOTE | 2019-12-13 19:20 | NUR ---
SCAN COORDINATOR PATIENT IN BED A/O X 1 ON CARDIAC MONITORING, NSR 94'S HR STABLE AND NOT IN DISTRESS. SAFETY MEASURES IN PLACE. WILL CONTINUE TO MONITOR
[2019-12-13] MEDS: DOCUSATE SODIUM LIQ 100 MG/10 ML UDC GT SCH (21:18)
[2019-12-13] MEDS ORDERED: LACOSAMIDE 50 MG TABLET ONE (21:21)
[2019-12-14] VITALS (9 sets, daily range): BP systolic 110–135; BP diastolic 66–91
--- NOTE | 2019-12-14 05:36 | NUR ---
ASLEEP AND EASILY AWAKEN, ON CARDIAC MONITORING ST 101 HR IN TELE MONITOR. SLEPT WELL, TOLERATED AND INFUSING JEVITY @ 55ML/HR NO RESIDUAL NOTED. 3LPM NC 02 SAT 97%. ALL NEEDS ATTENDED AND ANTICIPATED, KEPT CLEAN, DRY AND COMFORTABLE. REPOSITION EVERY 2 HOURS. NO S/S OF DISTRESS. MAINTAINS ISOLATION PRECAUTION AT ALL TIMES. SAFETY MEASURES AT ALL TIMES. WILL ENDORSE TO NEXT SHIFT.
[2019-12-14 06:48] LABS: BASOPHILS % (AUTO) 0.1 % (0.0-2.0); EOSINOPHILS % (AUTO) 0.6 % (0.0-6.0); HEMATOCRIT 43 % (39-51); HEMOGLOBIN 14.4 g/dL (13.5-17.5); LYMPHOCYTES # (AUTO) 1.2 /CMM (0.8-4.8); LYMPHOCYTES % (AUTO) 25.7 % (20.0-44.0); MEAN CORPUSCULAR HGB CONC 34 g/dl (31.0-36.0); MEAN CORPUSCULAR VOLUME 93 fL (80-96); MONOCYTES # (AUTO) 0.4 /CMM (0.1-1.30); MONOCYTES % (AUTO) 8.7 % (2.0-12.0); NEUTROPHILS # (AUTO) 3.1 /CMM (1.8-8.9); NEUTROPHILS % (AUTO) 64.9 % (43.0-81.0); PLATELET COUNT (AUTO) 92 /CMM (150-450); RED BLOOD CELL COUNT(AUTO) 4.65 MIL/uL (4.5-6.0); WHITE BLOOD COUNT (AUTO) 4.8 K/uL (4.3-11.0)
[2019-12-14 07:31] LABS: ALBUMIN 2.9 g/dL (3.4-5.0); BILIRUBIN,TOTAL 0.7 mg/dL (0.2-1.0); CALCIUM, SERUM 9.1 mg/dL (8.5-10.1); CREATININE 1.1 mg/dL (0.6-1.3); PHOSPHORUS 3.6 mg/dL (2.5-4.9); POTASSIUM 4.4 mmol/L (3.5-5.1); TOTAL PROTEIN, SERUM 7.9 g/dL (6.4-8.2)
[2019-12-14] MEDS: CHOLECALCIFEROL 1,000 UNIT TABLET (VIT D3) GT SCH (08:52)
[2019-12-14] MEDS: MULTIVITAMINS,THERAGRAN 1 UDTAB TABLET GT SCH (08:52)
[2019-12-14] MEDS: HYDROXYCHLOROQUINE 200 MG TABLET PO SCH ×2 (08:53→20:18)
[2019-12-14] MEDS: GABAPENTIN 100 MG CAPSULE PO SCH ×2 (08:53→20:18)
[2019-12-14] MEDS: FAMOTIDINE (20 MG) 20 MG TABLET GT SCH (08:53)
[2019-12-14] MEDS: LEVETIRACETAM SOL (5 ML) 100 MG/ML UDC GT SCH ×2 (08:53→20:18)
[2019-12-14] MEDS: MUPIROCIN OINT 2% 22 GM TUBE SCH ×2 (08:54→20:19)
[2019-12-14] MEDS: Z GUARD REMEDY 2 OZ OINT TP PRN (08:54)
[2019-12-14] MEDS: LACOSAMIDE ORAL SOLN 50 MG/5 ML UDC PO SCH ×2 (09:00→21:22)
[2019-12-14] MEDS: PROSOURCE / PROSTAT (PYXIS) 30 ML UDC GT SCH ×2 (09:03→20:23)
[2019-12-14] MEDS: ACETAMINOPHEN 650 MG/SUPP.RECT RC PRN (11:57)
[2019-12-14 12:33] LABS: EOSINOPHILS % (MANUAL) 1 % (0-4); LYMPHOCYTES % (MANUAL) 31 % (16-48); MONOCYTES % (MANUAL) 6 % (0-11.0); NEUTROPHILS % (MANUAL) 62 (42-76)
[2019-12-14] MEDS: AZITHROMYCIN 250 MG TABLET PO SCH (17:52)
[2019-12-14] MEDS: JEVITY 1.2 CAL 1,000 ML BOTTLE GT PRN (18:03)
[2019-12-14] MEDS ORDERED: FEE PK DOSING 1 MIN EA MC ONE (18:20)
[2019-12-14] MEDS: CEFEPIME 2 GM in IV D5W 100 ML IV SCH (18:48)
--- NOTE | 2019-12-14 19:16 | NUR ---
Handoff with night team registered nurse. Rene Camarena RN
--- NOTE | 2019-12-14 19:40 | NUR ---
FREIGHT BOOKER NOTES PATIENT IN BED, AWAKE, ALERT AND ORIENTED X 1. BREATHING EVEN AND UNLABORED ON NC 3L. SHOWS NO SIGNS OF ACUTE RESPIRATORY DISTRESS, NO ACUTE PAIN. TELE MONITOR ST 101. GIANG CATHETER IS CLEAN DRY AND INTACT, FLOWING URINE. GTUBE RUNNING JEVITY 1.2 AT 55ML/HR, FLUSHING WELL, NO RESIDUALS. IV ON L HAND 20G IS CLEAN DRY AND INTACT, SHOWS NO REDNESS, NO INFILTRATION. SAFETY PRECAUTIONS IN PLACE. BED IN LOWEST POSITION, LOCKED, AND CALL LIGHT KEPT WITHIN REACH. WILL CONTINUE TO MONITOR.
[2019-12-14] MEDS: VANCOMYCIN 1 GM in IV D5W 250 ML IV SCH (20:18)
[2019-12-14] MEDS: DOCUSATE SODIUM LIQ 100 MG/10 ML UDC GT SCH (20:18)
[2019-12-15] VITALS: BP 125/66
[2019-12-15] MEDS: VANCOMYCIN 1 GM in IV D5W 250 ML IV SCH ×3 (03:51→20:10)
[2019-12-15 04:00] VITALS: BP 145/65
[2019-12-15] MEDS: ACETAMINOPHEN 325 MG TABLET PO PRN ×2 (04:34→11:02)
--- NOTE | 2019-12-15 04:34 | NUR ---
AEROGRAPHER NOTES PATIENT TEMP 99.9 AXILLARY, GIVEN TYLENOL PRN AT 0434. WILL CONTINUE TO MONITOR.
--- NOTE | 2019-12-15 05:34 | NUR ---
SUPERVISOR LEAD REFINERY NOTES PATIENT AXILLARY TEMP 100.3, STARTED COOLING MEASURES. WILL CONTINUE TO MONITOR.
[2019-12-15] MEDS: CEFEPIME 2 GM in IV D5W 100 ML IV SCH ×3 (05:40→21:22)
--- NOTE | 2019-12-15 06:31 | NUR ---
OPERATIONS INSPECTOR NOTES PATIENT IN BED, ASLEEP, ALERT AND ORIENTED X 1. BREATHING EVEN AND UNLABORED ON NC 3L. SHOWS NO SIGNS OF ACUTE RESPIRATORY DISTRESS, NO ACUTE PAIN. TELE MONITOR ST 106. GIANG CATHETER IS CLEAN DRY AND INTACT, FLOWING URINE. GTUBE RUNNING JEVITY 1.2 AT 55ML/HR, FLUSHING WELL, NO RESIDUALS. IV ON L HAND 20G IS CLEAN DRY AND INTACT, SHOWS NO REDNESS, NO INFILTRATION. ALL DUE MEDICATIONS. SAFETY PRECAUTIONS IN PLACE. BED IN LOWEST POSITION, LOCKED, AND CALL LIGHT KEPT WITHIN REACH. WILL ENDORSE TO ONCOMING NURSE.
--- NOTE | 2019-12-15 07:22 | NUR ---
PASSENGER BRAKEMAN NOTES RECEIVED PT IN BED, AWAKE, A/OX1. PT SUPPOSED TO BE ON SUPPLEMENTARY OXYGEN AT 3L VIA NC BUT PT ON RA AT THIS TIME, WITH NO ACUTE RESPIRATORY DISTRESS NOTED. ON TELEMONITORING ST AT 106, ASYMPTOMATIC, PT APPEARS CALM AND COMFORTABLE. PIV TO LEFT HAND G 20, RUNNING NS AT TKO, INTACT AND OPERATIONAL. ON GOING GT FEEDING JEVITY 1.2 AT 55ML/HR, INTACT AND NO RESIDUALS NOTED. FC IN PLACE WITH YELLOW URINE IN THE BAG. PT KEPT COMFORTABLE. HOB ELEVATED. CALL LIGHT KEPT WITHIN REACH. PT'S BED IN LOWEST, LOCKED POSITION WITH SRX3. WILL CONTINUE PLAN OF CARE.
[2019-12-15 07:53] LABS: BASOPHILS % (AUTO) 0.3 % (0.0-2.0); EOSINOPHILS % (AUTO) 0.7 % (0.0-6.0); HEMATOCRIT 42 % (39-51); HEMOGLOBIN 14.2 g/dL (13.5-17.5); LYMPHOCYTES # (AUTO) 1.4 /CMM (0.8-4.8); LYMPHOCYTES % (AUTO) 23.5 % (20.0-44.0); MEAN CORPUSCULAR HGB CONC 33 g/dl (31.0-36.0); MEAN CORPUSCULAR VOLUME 93 fL (80-96); MONOCYTES # (AUTO) 0.6 /CMM (0.1-1.30); MONOCYTES % (AUTO) 9.7 % (2.0-12.0); NEUTROPHILS # (AUTO) 3.8 /CMM (1.8-8.9); NEUTROPHILS % (AUTO) 65.8 % (43.0-81.0); PLATELET COUNT (AUTO) 101 /CMM (150-450); RED BLOOD CELL COUNT(AUTO) 4.58 MIL/uL (4.5-6.0); WHITE BLOOD COUNT (AUTO) 5.8 K/uL (4.3-11.0)
[2019-12-15 08:00] VITALS: BP 135/71
[2019-12-15 08:09] LABS: ALBUMIN 2.7 g/dL (3.4-5.0); BILIRUBIN,TOTAL 0.9 mg/dL (0.2-1.0); PHOSPHORUS 3.7 mg/dL (2.5-4.9); POTASSIUM 3.8 mmol/L (3.5-5.1); TOTAL PROTEIN, SERUM 7.8 g/dL (6.4-8.2)
[2019-12-15] MEDS: LEVETIRACETAM SOL (5 ML) 100 MG/ML UDC GT SCH ×2 (08:12→21:22)
[2019-12-15] MEDS: LACOSAMIDE ORAL SOLN 50 MG/5 ML UDC PO SCH ×2 (08:12→21:22)
[2019-12-15] MEDS: GABAPENTIN 100 MG CAPSULE PO SCH ×2 (08:13→21:21)
[2019-12-15] MEDS: CHOLECALCIFEROL 1,000 UNIT TABLET (VIT D3) GT SCH (08:13)
[2019-12-15] MEDS: PROSOURCE / PROSTAT (PYXIS) 30 ML UDC GT SCH ×2 (08:13→21:21)
[2019-12-15] MEDS: FAMOTIDINE (20 MG) 20 MG TABLET GT SCH (08:13)
[2019-12-15] MEDS: HYDROXYCHLOROQUINE 200 MG TABLET PO SCH (08:13)
[2019-12-15] MEDS: MULTIVITAMINS,THERAGRAN 1 UDTAB TABLET GT SCH (08:13)
[2019-12-15] MEDS: MUPIROCIN OINT 2% 22 GM TUBE SCH ×2 (08:14→21:22)
[2019-12-15] MEDS ORDERED: POTASSIUM CHLORIDE 20 MEQ POWDER PACKET NG SCH (11:30)
[2019-12-15 12:00] VITALS: BP_SYST 103; BP_SYST 106; BP_DIAS 19; BP_DIAS 61
[2019-12-15] MEDS: JEVITY 1.2 CAL 1,000 ML BOTTLE GT PRN (12:03)
[2019-12-15 16:00] VITALS: BP 86/51
[2019-12-15] MEDS: AZITHROMYCIN 250 MG TABLET PO SCH (17:33)
--- NOTE | 2019-12-15 18:54 | NUR ---
INTERNAL CONTROLS MANAGER NOTES PT REMAINS IN BED, AWAKE, A/OX1. PT ON SUPPLEMENTARY OXYGEN AT 2L VIA NC BUT PT ON RA AT THIS TIME, WITH NO ACUTE RESPIRATORY DISTRESS NOTED. ON TELEMONITORING SR 90. PIV TO LEFT HAND G 20, RUNNING NS AT TKO, INTACT AND OPERATIONAL. ON GOING GT FEEDING JEVITY 1.2 AT 55ML/HR, INTACT AND NO RESIDUALS NOTED. FC IN PLACE WITH YELLOW URINE IN THE BAG, 450ML OUTPUT. PT KEPT COMFORTABLE. HOB ELEVATED. ALL NEEDS AND CARE PROVIDED. CALL LIGHT KEPT WITHIN REACH. PT'S BED IN LOWEST, LOCKED POSITION WITH SRX3. WILL ENDORSED TO INCOMING NIGHT NURSE FOR ETHEL.
--- NOTE | 2019-12-15 19:58 | NUR ---
[employer] PORTAL CONSULTANT NOTES RECEIVED PATIENT IN BED, AWAKE, A/OX1. ON SUPPLEMENTAL OXYGEN AT 2L VIA NC WITH NO ACUTE RESPIRATORY DISTRESS NOTED. ON TELEMONITORING SINUS 90s, PT APPEARS CALM AND COMFORTABLE. PERIPHERAL IV LINE TO LEFT HAND G 20, RUNNING NS AT TKO, INTACT AND OPERATIONAL. ON GOING GT FEEDING JEVITY 1.2 AT 55ML/HR, INTACT AND NO RESIDUALS NOTED. FC IN PLACE WITH YELLOW URINE IN THE BAG. PT KEPT COMFORTABLE. HOB ELEVATED. SAFETY MEASURES IN PLACE, ASPIRATION PRECAUTION EMPHASIZED. CALL LIGHT KEPT WITHIN REACH. PT'S BED IN LOWEST, LOCKED POSITION WITH SRX3. WILL CONTINUE TO MONITOR ACCORDINGLY.
[2019-12-15 20:28] VITALS: BP 104/53
[2019-12-15] MEDS: DOCUSATE SODIUM LIQ 100 MG/10 ML UDC GT SCH (21:22)
[2019-12-15] MEDS: ACETAMINOPHEN 650 MG/SUPP.RECT RC PRN (22:56)
--- NOTE | 2019-12-15 23:10 | NUR ---
RN NOTES TYLENOL SUPPOSITORY GIVEN VIA RECTUM PER MD ORDER FOR TEMPERATURE 101.4 / AXILLA AND NOTED WITH FACIAL GRIMACING. WILL FOLLOW UP. KEEP CLEAN DRY AND COMFORTABLE.
[2019-12-16] VITALS (9 sets, daily range): BP systolic 109–165; BP diastolic 51–94
--- NOTE | 2019-12-16 01:28 | NUR ---
RN NOTES RE CHECKED TEMP 99.1/AXILLA, RESTING COMFORTABLY, ALL NEEDS ATTENDED, COOLING MEASURES PROVIDED.
[2019-12-16] MEDS: VANCOMYCIN 1 GM in IV D5W 250 ML IV SCH ×3 (04:20→20:19)
[2019-12-16] MEDS: CEFEPIME 2 GM in IV D5W 100 ML IV SCH ×3 (05:20→21:30)
--- NOTE | 2019-12-16 06:34 | NUR ---
INKER AND OPAQUER NOTES RECEIVED PATIENT IN BED, AWAKE, A/OX1. ON SUPPLEMENTAL OXYGEN AT 2L VIA NC WITH NO ACUTE RESPIRATORY DISTRESS NOTED. ON TELEMONITORING SINUS 90s, PT APPEARS CALM AND COMFORTABLE. PERIPHERAL IV LINE TO LEFT HAND G 20, RUNNING NS AT TKO, INTACT AND OPERATIONAL. ON GOING GT FEEDING JEVITY 1.2 AT 55ML/HR, INTACT AND NO RESIDUALS NOTED. FC IN PLACE WITH YELLOW URINE IN THE BAG. PT KEPT COMFORTABLE. HOB ELEVATED. SAFETY MEASURES IN PLACE, ASPIRATION PRECAUTION EMPHASIZED. CALL LIGHT KEPT WITHIN REACH. PT'S BED IN LOWEST, LOCKED POSITION WITH SRX3. WILL ENDORSE TO AM NURSE FOR CONTINUITY OF CARE.
[2019-12-16 07:30] LABS: BASOPHILS % (AUTO) 0.2 % (0.0-2.0); EOSINOPHILS % (AUTO) 1.5 % (0.0-6.0); HEMATOCRIT 41 % (39-51); HEMOGLOBIN 13.7 g/dL (13.5-17.5); LYMPHOCYTES # (AUTO) 1.5 /CMM (0.8-4.8); LYMPHOCYTES % (AUTO) 25.5 % (20.0-44.0); MEAN CORPUSCULAR HGB CONC 34 g/dl (31.0-36.0); MEAN CORPUSCULAR VOLUME 93 fL (80-96); MONOCYTES # (AUTO) 0.5 /CMM (0.1-1.30); MONOCYTES % (AUTO) 8.8 % (2.0-12.0); NEUTROPHILS # (AUTO) 3.7 /CMM (1.8-8.9); PLATELET COUNT (AUTO) 120 /CMM (150-450); RED BLOOD CELL COUNT(AUTO) 4.39 MIL/uL (4.5-6.0); WHITE BLOOD COUNT (AUTO) 5.8 K/uL (4.3-11.0)
--- NOTE | 2019-12-16 07:45 | NUR ---
DIRECTOR CORRECTIONAL AGENCY OPENING NOTES RECEIVED PT ON BED, AWAKE, A/OX1, S[place]TH SUDANESE AND TAGALOG SPEAKING, SLURRED SPEECH. RESPIRATION EVEN AND NON LABORED WITH NO ACUTE RESPIRATORY DISTRESS, ON O2 AT 3LPM VIA N/C SATING 94%, HOB ELEVATED. ABD SOFT AND NON DISTENDED WITH ACTIVE BOWEL SOUNDS, ON DIAPER, ON FC WITH WEI TEA COLOR URINE, G-TUBE SITE CLEAN, 5ML RESIDUAL, ON JEVITY 1.2 AT 55ML/HR X 20 HOURS, STOPPED FEEDING. SKIN WARM TO TOUCH AND DRY. PT HAS NO S/SX OF PAIN AND DISCOMFORT. IV SITE AT LEFT HAND #20 PATENT IN FLUSHING, NO S/SX OF INFILTRATION, NS AT TKO. TELE MONITOR SHOWS SINUS TACHYCARDIA 119. ON AIRBORNE/DROPLET ISOLATION DUE TO POSITIVE COVID-19. PPE UTILIZED PROPERLY. BED IN LOW LOCKED POSITION, PADDED SIDE RAILS FOR SAFETY DUE TO SEIZURE D/O, WILL CONTINUE TO MONITOR CARE.
[2019-12-16 07:49] LABS: ALBUMIN 2.6 g/dL (3.4-5.0); BILIRUBIN,TOTAL 1.2 mg/dL (0.2-1.0); CALCIUM, SERUM 8.9 mg/dL (8.5-10.1); CREATININE 0.9 mg/dL (0.6-1.3); MAGNESIUM 1.9 mg/dL (1.8-2.4); PHOSPHORUS 3.6 mg/dL (2.5-4.9); POTASSIUM 3.9 mmol/L (3.5-5.1); TOTAL PROTEIN, SERUM 7.5 g/dL (6.4-8.2)
[2019-12-16] MEDS: ACETAMINOPHEN 325 MG TABLET PO PRN (09:12)
[2019-12-16] MEDS: LACOSAMIDE ORAL SOLN 50 MG/5 ML UDC PO SCH ×2 (09:12→20:19)
[2019-12-16] MEDS: PROSOURCE / PROSTAT (PYXIS) 30 ML UDC GT SCH ×2 (09:12→20:20)
[2019-12-16] MEDS: GABAPENTIN 100 MG CAPSULE PO SCH ×2 (09:12→20:20)
[2019-12-16] MEDS: MULTIVITAMINS,THERAGRAN 1 UDTAB TABLET GT SCH (09:12)
[2019-12-16] MEDS: LEVETIRACETAM SOL (5 ML) 100 MG/ML UDC GT SCH ×2 (09:12→20:19)
[2019-12-16] MEDS: CHOLECALCIFEROL 1,000 UNIT TABLET (VIT D3) GT SCH (09:12)
[2019-12-16] MEDS: FAMOTIDINE (20 MG) 20 MG TABLET GT SCH (09:12)
[2019-12-16] MEDS: MUPIROCIN OINT 2% 22 GM TUBE SCH ×2 (09:16→20:20)
--- NOTE | 2019-12-16 10:00 | NUR ---
PLOW SHAKER NOTES RE-CHECK TEMP AFTER GIVING TYLENOL 650 MG VIA GTUBE. TEMPERATURE 98.7 VIA AXILLA. WILL CONTINUE TO MONITOR
--- NOTE | 2019-12-16 12:10 | NUR ---
ROOFER GYPSUM NOTES LEFT HAND IV PULLED OUT BY PATIENT. WILL RE-INSERT NEW LINE AND ADMINISTER MEDICATION ORDERED
--- NOTE | 2019-12-16 13:40 | NUR ---
INFECTION CONTROL COORDINATOR NOTES OBTAINED NEW ORDER FROM [facility] LA [facility] FOR MIDLINE INSERTION DUE TO MULTIPLE ANTIBIOTIC. ORDER READ BACK NOTED AND CARRIED OUT. NURSING MACHINE DESIGN TEACHER NOTIFIED AND MIDLINE NURSE TO COME IN 1 HR
[2019-12-16] MEDS: JEVITY 1.2 CAL 1,000 ML BOTTLE GT PRN (18:34)
--- NOTE | 2019-12-16 18:45 | NUR ---
STORES LABORER CLOSING NOTES PT AAO X1. RESPIRATION NOT IN ACUTE RESPIRATORY DISTRESS, O2 AT 2LPM VIA N/C SATING 94-99%. ABD SOFT AND NON DISTENDED, BMX1 TODAY, FC WITH WEI TEA COLOR URINE, GTUBE FEEDING AT 55 ML/HR. FLACC-0. SKIN WARM TO TOUCH AND DRY, NO NEW OPEN SKIN BREAKDOWN. IV SITE AT RIGHT UPPER MIDLINE, PATENT IN FLUSHING, DRESSING CLEAN RUNNING NS AT TKO. TELE MONITOR SHOWS SINUS RHYTHM TO TACHYCARDIA, CONTROLLED. ON CONTACT/DROPLET ISOLATION DUE TO + COVID 19. BED IN LOW LOCKED POSITION, SR X2 UP FOR SAFETY, BED ALARM ON. ENDORSED PT CARE TO NEXT SHIFT.
[2019-12-16] MEDS: DOCUSATE SODIUM LIQ 100 MG/10 ML UDC GT SCH (20:19)
[2019-12-17] VITALS (7 sets, daily range): BP systolic 110–132; BP diastolic 51–79
[2019-12-17] MEDS: VANCOMYCIN 1 GM in IV D5W 250 ML IV SCH ×3 (04:14→21:36)
[2019-12-17] MEDS: CEFEPIME 2 GM in IV D5W 100 ML IV SCH ×3 (05:23→23:03)
[2019-12-17 07:01] LABS: BASOPHILS % (AUTO) 0.2 % (0.0-2.0); EOSINOPHILS % (AUTO) 3.8 % (0.0-6.0); HEMATOCRIT 39 % (39-51); HEMOGLOBIN 13.2 g/dL (13.5-17.5); LYMPHOCYTES # (AUTO) 1.5 /CMM (0.8-4.8); LYMPHOCYTES % (AUTO) 26.8 % (20.0-44.0); MEAN CORPUSCULAR HGB CONC 34 g/dl (31.0-36.0); MEAN CORPUSCULAR VOLUME 93 fL (80-96); MONOCYTES # (AUTO) 0.5 /CMM (0.1-1.30); MONOCYTES % (AUTO) 9.3 % (2.0-12.0); NEUTROPHILS # (AUTO) 3.4 /CMM (1.8-8.9); NEUTROPHILS % (AUTO) 59.9 % (43.0-81.0); PLATELET COUNT (AUTO) 124 /CMM (150-450); RED BLOOD CELL COUNT(AUTO) 4.21 MIL/uL (4.5-6.0); WHITE BLOOD COUNT (AUTO) 5.6 K/uL (4.3-11.0)
[2019-12-17 07:13] LABS: ALBUMIN 2.5 g/dL (3.4-5.0); BILIRUBIN,TOTAL 0.9 mg/dL (0.2-1.0); CALCIUM, SERUM 8.8 mg/dL (8.5-10.1); CREATININE 0.9 mg/dL (0.6-1.3); MAGNESIUM 1.9 mg/dL (1.8-2.4); PHOSPHORUS 3.2 mg/dL (2.5-4.9); POTASSIUM 3.5 mmol/L (3.5-5.1); TOTAL PROTEIN, SERUM 7.3 g/dL (6.4-8.2)
[2019-12-17 07:59] LABS: C-REACTIVE PROTEIN 4.4 mg/dL (0.0-0.9)
--- NOTE | 2019-12-17 08:00 | NUR ---
RN OPENING NOTE RECEIVED PATIENT IN BED. NO ACUTE DISTRESS NOTED. PT. A&OX1, WITH CONFUSION. PT. ON 2L O2 VIA NC, SATURATING WELL AT 95%. PT. ON TELE MONITOR, SR-ST WITH PVC NOTED, HR AT 99. PT. GIANG CATHETER IN PLACE, PATENT, AND PLACED BELOW PT. G-TUBE IN PLACE, PATENT, FLUSHED WELL, PT. TOLERATING FEEDING EVIDENCED BY NO RESIDUAL. ANGELIA MIDLINE IN PLACE, TKO, INTACT, PATENT, FLUSHED WELL. PT. SAFETY MAINTAINED, CALL LIGHT WITHIN REACH. WILL CONTINUE TO MONITOR.
[2019-12-17] MEDS: LEVETIRACETAM SOL (5 ML) 100 MG/ML UDC GT SCH ×2 (09:52→21:43)
[2019-12-17] MEDS: FAMOTIDINE (20 MG) 20 MG TABLET GT SCH (09:52)
[2019-12-17] MEDS: CHOLECALCIFEROL 1,000 UNIT TABLET (VIT D3) GT SCH (09:53)
[2019-12-17] MEDS: MUPIROCIN OINT 2% 22 GM TUBE SCH ×2 (09:53→21:43)
[2019-12-17] MEDS: GABAPENTIN 100 MG CAPSULE PO SCH ×2 (09:53→21:44)
[2019-12-17] MEDS: MULTIVITAMINS,THERAGRAN 1 UDTAB TABLET GT SCH (09:53)
[2019-12-17] MEDS: PROSOURCE / PROSTAT (PYXIS) 30 ML UDC GT SCH ×2 (09:54→21:43)
[2019-12-17] MEDS: LACOSAMIDE ORAL SOLN 50 MG/5 ML UDC PO SCH ×2 (10:35→23:03)
[2019-12-17 12:31] LABS: D-DIMER 1.87 mg/L(FEU (0.17-0.50)
--- NOTE | 2019-12-17 14:00 | NUR ---
RN NOTE OBTAINED NASOPHARYNGEAL SPECIMEN FOR COVID TEST. PT. TOLERATED WELL. SENT SPECIMEN UP TO LAB.
--- NOTE | 2019-12-17 18:46 | NUR ---
RN CLOSING NOTE PATIENT IN BED. NO ACUTE DISTRESS NOTED. PT. A&OX1, WITH CONFUSION. PT. ON 2L O2 VIA NC, WITH NO RESPIRATORY DISTRESS. PT. ON TELE MONITOR, SR-ST WITH PVC NOTED, HR AT 84. PT. GIANG CATHETER IN PLACE, PATENT, AND PLACED BELOW PT. G-TUBE IN PLACE, PATENT, FLUSHED WELL, PT. TOLERATING FEEDING EVIDENCED BY NO RESIDUAL. ANGELIA MIDLINE IN PLACE, TKO, INTACT, PATENT, FLUSHED WELL. PT. SAFETY MAINTAINED, CALL LIGHT WITHIN REACH. WILL ENDORSE PLAN OF CARE TO ONCOMING SHIFT.
--- NOTE | 2019-12-17 20:30 | NUR ---
CAN COVERER NOTE: RECEIVED PATIENT FROM [facility] [place]. PATIENT RESTING IN PLACE, NO ACUTE DISTRESS NOTED. MIDLINE TO ANGELIA IN PLACE. GIANG CATHETER IN PLACE, EMPTY AT THIS TIME. GTUBE IN PLACE, CLAMPED AT THIS TIME. HOB ELEVATED. BED LOCKED AND IN LOWEST POSITION, CALL LIGHT IN REACH. WILL CONTINUE TO MONITOR.
[2019-12-17] MEDS: DOCUSATE SODIUM LIQ 100 MG/10 ML UDC GT SCH (21:42)
--- NOTE | 2019-12-17 21:45 | NUR ---
SAMPLE PROCESSOR NOTE: PATIENT ANTIBIOTIC GIVEN LATE DUE TO MEDICATIONS WERE STILL IN [facility] [place]. RECEIVED MEDICATIONS AND ADMINISTER ORDERED. PATIENT VANCO TROUGH 19. WILL CONTINUE TO MONITOR.
[2019-12-17] MEDS ORDERED: LACOSAMIDE ORAL SOLN 50 MG/5 ML UDC ONE (22:44)
[2019-12-17] MEDS: JEVITY 1.2 CAL 1,000 ML BOTTLE GT PRN (23:03)
[2019-12-18] VITALS (10 sets, daily range): BP systolic 98–138; BP diastolic 57–79
[2019-12-18] MEDS: VANCOMYCIN 1 GM in IV D5W 250 ML IV SCH (04:04)
[2019-12-18] MEDS: CEFEPIME 2 GM in IV D5W 100 ML IV SCH ×3 (05:55→20:58)
--- NOTE | 2019-12-18 06:20 | NUR ---
OBSTETRICS SCRUB NURSE NOTE: PATIENT RESTING IN PLACE, NO ACUTE DISTRESS NOTED. MIDLINE TO ANGELIA IN PLACE. GIANG CATHETER IN PLACE, GTUBE IN PLACE, INFUSING JEVITY AT 55 ML/HR. HOB ELEVATED. BED LOCKED AND IN LOWEST POSITION, CALL LIGHT IN REACH. WILL ENDORSE TO DAY NURSE TO CONTINUE WITH PLAN OF CARE.
--- NOTE | 2019-12-18 07:58 | NUR ---
ASSEMBLER BODY NOTES PATIENT RESTING IN BED, NO RESPIRATORY DISTRESS, NO S/S OF ANY DISCOMFORT AT THIS TIME. MULTINEEDLE SHIRRER ON SR 88. SKIN WARM TO TOUCH, IV ACCESS SITE INTACT AND PATENT. GT INTACT AND JEVITY RUNNING AT 55ML/HR, TOLERATING WELL. PATIENT'S NEEDS ATTENDED, BED ON LOWEST LOCKED POSITION, CALL LIGHT WITHIN REACH. WILL CONTINUE TO MONITOR.
[2019-12-18 08:05] LABS: BASOPHILS % (AUTO) 0.2 % (0.0-2.0); EOSINOPHILS % (AUTO) 3.2 % (0.0-6.0); HEMATOCRIT 39 % (39-51); HEMOGLOBIN 13.1 g/dL (13.5-17.5); LYMPHOCYTES # (AUTO) 1.4 /CMM (0.8-4.8); LYMPHOCYTES % (AUTO) 26.7 % (20.0-44.0); MEAN CORPUSCULAR HGB CONC 34 g/dl (31.0-36.0); MEAN CORPUSCULAR VOLUME 91 fL (80-96); MONOCYTES # (AUTO) 0.6 /CMM (0.1-1.30); MONOCYTES % (AUTO) 11.7 % (2.0-12.0); NEUTROPHILS # (AUTO) 3.1 /CMM (1.8-8.9); NEUTROPHILS % (AUTO) 58.2 % (43.0-81.0); PLATELET COUNT (AUTO) 154 /CMM (150-450); RED BLOOD CELL COUNT(AUTO) 4.23 MIL/uL (4.5-6.0); WHITE BLOOD COUNT (AUTO) 5.4 K/uL (4.3-11.0)
[2019-12-18 08:31] LABS: ALBUMIN 2.5 g/dL (3.4-5.0); BILIRUBIN,TOTAL 0.9 mg/dL (0.2-1.0); CALCIUM, SERUM 8.7 mg/dL (8.5-10.1); CREATININE 0.7 mg/dL (0.6-1.3); MAGNESIUM 1.9 mg/dL (1.8-2.4); PHOSPHORUS 3.2 mg/dL (2.5-4.9); POTASSIUM 3.5 mmol/L (3.5-5.1); TOTAL PROTEIN, SERUM 7.6 g/dL (6.4-8.2)
[2019-12-18] MEDS: FAMOTIDINE (20 MG) 20 MG TABLET GT SCH (08:47)
[2019-12-18] MEDS: LEVETIRACETAM SOL (5 ML) 100 MG/ML UDC GT SCH ×2 (08:47→20:57)
[2019-12-18] MEDS: MUPIROCIN OINT 2% 22 GM TUBE SCH ×2 (08:48→20:58)
[2019-12-18] MEDS: MULTIVITAMINS,THERAGRAN 1 UDTAB TABLET GT SCH (08:48)
[2019-12-18] MEDS: CHOLECALCIFEROL 1,000 UNIT TABLET (VIT D3) GT SCH (08:48)
[2019-12-18] MEDS: PROSOURCE / PROSTAT (PYXIS) 30 ML UDC GT SCH ×2 (08:48→20:56)
[2019-12-18] MEDS: GABAPENTIN 100 MG CAPSULE PO SCH ×2 (08:48→20:57)
[2019-12-18] MEDS: LACOSAMIDE ORAL SOLN 50 MG/5 ML UDC PO SCH ×2 (09:40→20:57)
[2019-12-18] MEDS: VANCOMYCIN 0.75 GM in IV D5W 250 ML IV SCH ×2 (12:30→20:22)
--- NOTE | 2019-12-18 18:54 | NUR ---
SALES PLANNER NOTES PATIENT RESTING IN BED, NO RESPIRATORY DISTRESS, NO S/S OF ANY DISCOMFORT AT THIS TIME. CHIEF BUSINESS DEVELOPMENT OFFICER ON SR 82 SKIN WARM TO TOUCH, IV ACCESS SITE INTACT AND PATENT. GT INTACT AND JEVITY RUNNING AT 55ML/HR, TOLERATING WELL. PATIENT'S NEEDS ATTENDED, BED ON LOWEST LOCKED POSITION, CALL LIGHT WITHIN REACH. WILL ENDORSE TO ONCOMING NURSE.
--- NOTE | 2019-12-18 19:47 | NUR ---
SOLAR SALES AMBASSADOR NOTE: RECEIVED PATIENT AWAKE. PATIENT RESTING COMFORTABLY, NO ACUTE DISTRESS NOTED. MIDLINE TO ANGELIA IN PLACE. GIANG CATHETER IN PLACE, EMPTY AT THIS TIME. GTUBE IN PLACE. HOB ELEVATED. SAFETY MEASURES IN PLACE, ASPIRATION PRECAUTION EMPHASIZED. BED LOCKED AND IN LOWEST POSITION, CALL LIGHT WITH IN EASY REACH. TELE MONITOR READS SINUS 80s - 90sWILL CONTINUE TO MONITOR ACCORDINGLY.
[2019-12-18] MEDS: DOCUSATE SODIUM LIQ 100 MG/10 ML UDC GT SCH (20:56)
[2019-12-19 00:48] VITALS: BP 106/54
[2019-12-19] MEDS: VANCOMYCIN 0.75 GM in IV D5W 250 ML IV SCH ×2 (03:32→12:00)
[2019-12-19] MEDS: CEFEPIME 2 GM in IV D5W 100 ML IV SCH ×2 (04:58→13:01)
[2019-12-19 06:40] VITALS: BP 128/72
--- NOTE | 2019-12-19 06:45 | NUR ---
DYE HOUSE HELPER NOTE: ALL NEEDS ATTENDED AND MET. ABLE TO REST AND SLEPT AT INTERVALS. BREATHING EVEN AND UNLABORED. PATIENT RESTING IN PLACE, NO ACUTE DISTRESS NOTED. MIDLINE TO ANGELIA IN PLACE. GIANG CATHETER IN PLACE, GTUBE IN PLACE,. HOB ELEVATED. BED LOCKED AND IN LOWEST POSITION, CALL LIGHT WITH IN REACH. WILL ENDORSE TO AM NURSE FOR CONTINUITY OF CARE.
[2019-12-19 07:17] LABS: BASOPHILS % (AUTO) 0.2 % (0.0-2.0); EOSINOPHILS % (AUTO) 3.1 % (0.0-6.0); HEMATOCRIT 38 % (39-51); HEMOGLOBIN 12.9 g/dL (13.5-17.5); LYMPHOCYTES # (AUTO) 1.2 /CMM (0.8-4.8); MEAN CORPUSCULAR HGB CONC 34 g/dl (31.0-36.0); MEAN CORPUSCULAR VOLUME 91 fL (80-96); MONOCYTES # (AUTO) 0.8 /CMM (0.1-1.30); MONOCYTES % (AUTO) 11.5 % (2.0-12.0); NEUTROPHILS # (AUTO) 4.3 /CMM (1.8-8.9); NEUTROPHILS % (AUTO) 66.2 % (43.0-81.0); PLATELET COUNT (AUTO) 200 /CMM (150-450); WHITE BLOOD COUNT (AUTO) 6.5 K/uL (4.3-11.0)
[2019-12-19 07:23] LABS: CALCIUM, SERUM 8.9 mg/dL (8.5-10.1); CREATININE 0.8 mg/dL (0.6-1.3); PHOSPHORUS 2.6 mg/dL (2.5-4.9); POTASSIUM 3.7 mmol/L (3.5-5.1)
--- NOTE | 2019-12-19 07:30 | NUR ---
AIRCRAFT ASSEMBLER NOTES PT IN BED, AWAKE, ALERT TO SELF, CONFUSED, NO SIGN OF PAIN OR DISTRESS, CALL LIGHT WITHIN REACH, KEPT WARM AND COMFORTABLE IN BED.
[2019-12-19 08:00] VITALS: BP 123/73
[2019-12-19] MEDS: PROSOURCE / PROSTAT (PYXIS) 30 ML UDC GT SCH ×2 (08:15→22:11)
[2019-12-19] MEDS: LEVETIRACETAM SOL (5 ML) 100 MG/ML UDC GT SCH ×2 (08:15→22:09)
[2019-12-19] MEDS: FAMOTIDINE (20 MG) 20 MG TABLET GT SCH (08:15)
[2019-12-19] MEDS: MULTIVITAMINS,THERAGRAN 1 UDTAB TABLET GT SCH (08:15)
[2019-12-19] MEDS: GABAPENTIN 100 MG CAPSULE PO SCH ×2 (08:16→22:09)
[2019-12-19] MEDS: CHOLECALCIFEROL 1,000 UNIT TABLET (VIT D3) GT SCH (08:16)
[2019-12-19] MEDS: MUPIROCIN OINT 2% 22 GM TUBE SCH ×2 (08:30→22:11)
[2019-12-19] MEDS: LACOSAMIDE ORAL SOLN 50 MG/5 ML UDC PO SCH ×2 (10:00→22:09)
[2019-12-19] MEDS ORDERED: CEFE2VIA11 IV (10:54)
[2019-12-19 11:52] LABS: EOSINOPHILS % (MANUAL) 2 % (0-4); LYMPHOCYTES % (MANUAL) 20 % (16-48); MONOCYTES % (MANUAL) 13 % (0-11.0); MYELOCYTES % 1 % (0-0); NEUTROPHILS % (MANUAL) 64 (42-76)
[2019-12-19 12:12] VITALS: BP 118/70
[2019-12-19 16:00] VITALS: BP 94/51
--- NOTE | 2019-12-19 18:00 | NUR ---
MOVIE CRITIC NOTES PT IN BED, ASLEEP, EASY TO AROUSE, NON VERBAL, NO SIGN OF PAIN OR DISTRESS, CALL LIGHT WITHIN REACH, GT FEEDING INFUSING WELL, TOLERATES WELL, PM CARE PROVIDED, F/C IN PLACE, DRAINING WELL, DISCHARGE ORDER GIVEN BY DR. GOULD, AWAITING FOR BED AVAILABILITY AT [facility] PER SALES APPRENTICE, REPOSITIONED FOR COMFORT, ALL NEEDS ATTENDED.
[2019-12-19 20:26] VITALS: BP 115/75
[2019-12-19] MEDS: DOCUSATE SODIUM LIQ 100 MG/10 ML UDC GT SCH (22:09)
[2019-12-19] MEDS: JEVITY 1.2 CAL 1,000 ML BOTTLE GT PRN (22:50)
[2019-12-20 00:36] VITALS: BP 105/63
[2019-12-20 04:05] VITALS: BP 113/61
--- NOTE | 2019-12-20 06:30 | NUR ---
PUBLIC RELATIONS PROFESSIONAL NOTES AWAKE & CONFUSED. NOT IN ANY DISTRESS. NO SOB NOTED. NO S/SX OF ANY PAIN OR DISCOMFORT AT THIS TIME. ON TELE SR @ 97 WITH ML PATENT & INTACT. WITH GTF INFUSING WELL. AM CARE DONE. WITH F/C DRAINING TO YELLOWISH OUTPUT. MONITORED ACCORDINGLY. CALL LIGHT WITHIN REACH. BED IN LOWEST POSITION. SR UP X 3 FOR SAFETY WITH BED ALARM ON. WILL ENDORSE TO NEXT SHIFT.
[2019-12-20 08:00] VITALS: BP 120/66
--- NOTE | 2019-12-20 08:00 | NUR ---
PROGRAMMER ANALYST NOTES AWAKE & CONFUSED. NOT IN ANY DISTRESS. NO SOB NOTED ON ROOM AIR. O2 SAT 93% . NO S/SX OF ANY PAIN OR DISCOMFORT AT THIS TIME. ON TELE SR @ 98 .WITH GTF INFUSING WELL-TOLERATING WELL WITH NO RESIDUALS NOTED. AM CARE DONE. ON COVID ISOLATION PRECAUTIONS. TURNED EVERY TWO HRS. WITH F/C DRAINING TO YELLOWISH OUTPUT. MONITORED ACCORDINGLY. CALL LIGHT WITHIN REACH. BED IN LOWEST POSITION. SR UP X 3 FOR SAFETY WITH BED ALARM ON.
[2019-12-20] MEDS: PROSOURCE / PROSTAT (PYXIS) 30 ML UDC GT SCH (08:30)
[2019-12-20] MEDS: LEVETIRACETAM SOL (5 ML) 100 MG/ML UDC GT SCH (08:31)
[2019-12-20] MEDS: CHOLECALCIFEROL 1,000 UNIT TABLET (VIT D3) GT SCH (08:31)
[2019-12-20] MEDS: MULTIVITAMINS,THERAGRAN 1 UDTAB TABLET GT SCH (08:31)
[2019-12-20] MEDS: LACOSAMIDE ORAL SOLN 50 MG/5 ML UDC PO SCH (08:31)
[2019-12-20] MEDS: GABAPENTIN 100 MG CAPSULE PO SCH (08:31)
[2019-12-20] MEDS: FAMOTIDINE (20 MG) 20 MG TABLET GT SCH (08:32)
[2019-12-20 08:42] LABS: CALCIUM, SERUM 8.9 mg/dL (8.5-10.1); CREATININE 0.9 mg/dL (0.6-1.3); POTASSIUM 3.7 mmol/L (3.5-5.1)
[2019-12-20] MEDS: MUPIROCIN OINT 2% 22 GM TUBE SCH (11:36)
[2019-12-20 12:00] VITALS: BP 125/76
--- NOTE | 2019-12-20 16:30 | NUR ---
DISCHARGED PT BACK TO [facility] ROOM 31A VIA AMBULANCE WITH STABLE V/S.ANGELIA MIDLINE REMAINS INTACT WITH SITE CLEAN AND DRY. FOR CONTINUITY OF MAXIPIME 2GM IV Q 8 HRS FOR 2 MORE DAYS. GIANG CATH REMAINS INTACT AND EMPTIED GIANG BAG WITH 500 ML CLEAR YELLOW URINE.PT IS AFEBRILE WITH NO S/S OF SOB OR DISTRESS ON ROOM AIR WITH NO COUGHING EPISODE.REPORT CALLED IN TO [facility].
== END 2019-12-20 16:48 | DRG 137 ==
LOC: ER 16:56 → MEDSG1 21:06 → TELE1 22:15 → TELE2 12-17 20:16
PROVIDERS: ADMIT Nurse Practitioner Acute Care; ATTEND Internal Medicine
PROC: 05H933Z Insertion of Infusion Device into Right Brachial Vein, Percutaneous Approach (ICD-10-PCS; principal; 2019-12-16)
DX: U07.1 COVID-19 (principal); J96.01 Acute respiratory failure with hypoxia; G93.41 Metabolic encephalopathy; E44.0 Moderate protein-calorie malnutrition; R13.10 Dysphagia, unspecified; I11.0 Hypertensive heart disease with heart failure; I50.32 Chronic diastolic (congestive) heart failure; G40.909 Epilepsy, unspecified, not intractable, without status epilepticus; M06.9 Rheumatoid arthritis, unspecified; K21.9 Gastro-esophageal reflux disease without esophagitis; J12.89 Other viral pneumonia; Z93.1 Gastrostomy status; E87.6 Hypokalemia; E11.9 Type 2 diabetes mellitus without complications; E78.5 Hyperlipidemia, unspecified; F03.90 Unspecified dementia, unspecified severity, without behavioral disturbance, psychotic disturbance, mood disturbance, and anxiety; E88.09 Other disorders of plasma-protein metabolism, not elsewhere classified; R74.0 Nonspecific elevation of levels of transaminase and lactic acid dehydrogenase [LDH]; Z68.24 Body mass index [BMI] 24.0-24.9, adult
CPT/HCPCS: 36410; 36415; 36600; 71045-TC; 80048-TC; 80053-TC; 80061-TC; 80202-TC; 81000-TC; 82550-TC; 82728-TC; 82803-TC; 83605-TC; 83615-TC; 83735-TC; 83880; 84100-TC; 84484-TC; 85025-TC; 85378-TC; 85385-TC; 85730-TC; 86140-TC; 86704; 86803; 87040-TC; 87081-TC; 87086-TC; 87340; 87806; G0378; J0456; J0692; J0696; J1953; J3370; J7030; J7040; J7060

== ENCOUNTER 2023-12-04 16:17 | Emergency (ER) | payer MEDICAID ==
[~2023-12-04] VITALS: Ht 170.2 cm; Wt 68.9 kg
[~2023-12-04 16:17] MED LIST changes: +ACET-868 GT; -ACET325T53 PO; +AMIN30LI27 GT; +BISA10SU11 RC; +CEFE2VIA11 IV; +CRAN3875 GT; -LACO50TA2 GT; -LACT-209 GT; +MAGN400O6 GT; +NA P133E RC; +NUTR250L50 GT; -TOBR2.5D EACHEYE
[2023-12-04 16:33] VITALS: BP 98/52; TEMP 98.7; O2SAT 100
== END 2023-12-04 20:48 ==
LOC: ER 17:02
DX: R04.0 Epistaxis (principal); E78.5 Hyperlipidemia, unspecified; R51.9 Headache, unspecified; K21.9 Gastro-esophageal reflux disease without esophagitis; Z79.899 Other long term (current) drug therapy; Z98.890 Other specified postprocedural states; W18.39XA Other fall on same level, initial encounter; Y93.89 Activity, other specified; Y92.89 Other specified places as the place of occurrence of the external cause; Y99.8 Other external cause status
CPT/HCPCS: 70450-TC; 72125-TC